=== PATIENT | female | born 1985 | race Caucasian/White ===

== ENCOUNTER → 2020-08-19 11:27 | Outpatient (BNVA) | payer MEDICAID, SELFPAY | PROVIDERS: PCP Pediatrics; Referring Provider Pediatrics; Visit Provider Internal Medicine | DX: Z76.89 Persons encountering health services in other specified circumstances (principal) ==

== ENCOUNTER → 2020-10-26 11:30 | Outpatient (BNVA) | payer MEDICAID, SELFPAY | PROVIDERS: PCP Pediatrics; Referring Provider Pediatrics; Visit Provider Internal Medicine ==

== ENCOUNTER 2020-12-15 08:57 | Outpatient (REF) | payer MEDICAID, SELFPAY ==
[2020-12-15 10:55] LABS: Free T4 (Free Thyroxine) 0.94 ng/dL (0.71-1.85); Thyroid Stimulating Hormone 2.14 uIU/mL (0.32-4.0)
== END 2020-12-15 08:58 | disposition home or self-care (01) ==
LOC: HO.LAB 08:57
PROVIDERS: PCP Nurse Practitioner; Visit Provider Internal Medicine
DX: E03.9 Hypothyroidism, unspecified (principal); E55.9 Vitamin D deficiency, unspecified
CPT/HCPCS: 36415; 82306; 84439; 84443

== ENCOUNTER → 2020-12-30 11:44 | Outpatient (BNVA) | payer MEDICAID, SELFPAY | PROVIDERS: PCP Pediatrics; Visit Provider Internal Medicine ==

== ENCOUNTER 2021-01-25 15:05 | Outpatient (REF) | payer MEDICAID, SELFPAY | END 2021-01-25 15:06 | disposition home or self-care (01) | LOC: HO.LAB 15:05 | PROVIDERS: Visit Provider Internal Medicine | DX: Z20.822 Contact with and (suspected) exposure to COVID-19 (principal) | CPT/HCPCS: C9803; U0003; U0005 ==

== ENCOUNTER 2021-02-23 08:35 | Outpatient (REF) | payer MEDICAID, SELFPAY ==
[2021-02-23 09:41] LABS: Free T4 (Free Thyroxine) 1.04 ng/dL (0.71-1.85); Thyroid Stimulating Hormone 3.04 uIU/mL (0.32-4.0); Vitamin D 25-OH Total 43.9 ng/mL (>30)
== END 2021-02-23 08:36 | disposition home or self-care (01) ==
LOC: HO.LAB 08:35
PROVIDERS: PCP Pediatrics; Visit Provider Internal Medicine
DX: E03.9 Hypothyroidism, unspecified (principal); E55.9 Vitamin D deficiency, unspecified
CPT/HCPCS: 36415; 82306; 84439; 84443

== ENCOUNTER → 2021-03-01 09:48 | Outpatient (BNVA) | payer MEDICAID, SELFPAY | PROVIDERS: PCP Pediatrics; Visit Provider Internal Medicine ==

== ENCOUNTER 2021-06-23 08:24 | Outpatient (REF) | payer MEDICAID, SELFPAY ==
[2021-06-23 09:42] LABS: Free T4 (Free Thyroxine) 0.98 ng/dL (0.71-1.85); Thyroid Stimulating Hormone 2.83 uIU/mL (0.32-4.0); Vitamin D 25-OH Total 30.4 ng/mL (>30)
== END 2021-06-23 08:25 | disposition home or self-care (01) ==
LOC: HO.LAB 08:24
PROVIDERS: PCP Pediatrics; Visit Provider Internal Medicine
DX: E03.9 Hypothyroidism, unspecified (principal); E55.9 Vitamin D deficiency, unspecified
CPT/HCPCS: 36415; 82306; 84439; 84443

== ENCOUNTER → 2021-06-30 11:59 | Outpatient (BNVA) | payer MEDICAID, SELFPAY | PROVIDERS: PCP Pediatrics; Visit Provider Internal Medicine ==

== ENCOUNTER 2021-10-12 10:00 | Outpatient (REF) | payer MEDICAID, SELFPAY ==
[2021-10-12 10:57] LABS: COVID-19 Test Negative (Negative)
== END 2021-10-12 10:01 | disposition home or self-care (01) ==
LOC: HO.LAB 10:00
PROVIDERS: Visit Provider Internal Medicine
DX: Z20.822 Contact with and (suspected) exposure to COVID-19 (principal)
CPT/HCPCS: 87635; C9803

== ENCOUNTER 2021-10-14 14:26 | Outpatient (REF) | payer MEDICAID, SELFPAY ==
[2021-10-14 15:01] LABS: COVID-19 Test Negative (Negative)
== END 2021-10-14 14:27 | disposition home or self-care (01) ==
LOC: HO.LAB 14:26
PROVIDERS: Visit Provider Internal Medicine
DX: Z20.822 Contact with and (suspected) exposure to COVID-19 (principal)
CPT/HCPCS: 87635; C9803

== ENCOUNTER 2022-01-19 14:15 | Outpatient (REF) | payer MEDICAID, SELFPAY | END 2022-01-19 14:16 | disposition home or self-care (01) | LOC: HO.MAMMO 14:15 | PROVIDERS: PCP Pediatrics; Visit Provider Pediatrics | DX: Z13.89 Encounter for screening for other disorder (principal) ==

== ENCOUNTER 2022-01-23 19:45 | Emergency (ER) | payer MEDICAID, SELFPAY ==
--- NOTE | ~2022-01-23 | XR_ITS ---
EXAMINATION: XR CHEST CLINICAL INFORMATION: Chest pain COMPARISON: None TECHNIQUE: Frontal view of the chest was obtained. FINDINGS: Lungs are well expanded and clear. No consolidation, pleural effusion or pneumothorax. Cardiomediastinal silhouette has normal size and contour. The pulmonary vascular pattern is normal. The visualized bones and upper abdomen are unremarkable. XR/XR chest 1V IMPRESSION: No acute pulmonary disease.
--- NOTE | 2022-01-23 19:48 | ECG_ITS ---
Test Reason : chest pain Blood Pressure : / mmHG Vent. Rate : 111 BPM Atrial Rate : 111 BPM P-R Int : 160 ms QRS Dur : 076 ms QT Int : 340 ms P-R-T Axes : 052 -10 -07 degrees QTc Int : 462 ms Sinus tachycardia Minimal voltage criteria for LVH, may be normal variant ( R in aVL ) Nonspecific ST changes Abnormal ECG No previous ECGs available Referred By: Generic ED Physician Electronically Signed By:Ruben Jenkins
[2022-01-23 19:54] VITALS: BP 105/78; PULSE 117; RESP 18; TEMP 37.3; O2SAT 98; BMI 28.5
[2022-01-23 20:05] LABS: MANUAL DIFF FLAG NO
[2022-01-23 20:18] LABS: Basophils Absolute Auto 0.1 X10*3/uL (0.0-0.2); Basophils Percent Auto 0.5 % (0-2); Eosinophils Absolute Auto 0.1 X10*3/uL (0.0-0.4); Eosinophils Percent Auto 0.5 % (0-4); Hematocrit 40.5 % (37.0-47.0); Hemoglobin 13.4 g/dl (12.0-16.0); Imm Gran Abs Auto 0.04 X10*3/uL (0.00-0.03); Imm Gran Pct Auto 0.3 % (0.0-0.4); Lymphocytes Absolute Auto 0.8 X10*3/uL (1.2-4.9); Lymphocytes Percent Auto 6.6 % (20-40); Mean Corpuscular HGB Conc 33.1 g/dl (31.0-35.0); Mean Corpuscular Hemoglobin 30.7 pg (27.0-33.0); Mean Corpuscular Volume 92.9 fL (80.0-98.0); Mean Platelet Volume 9.4 fL (9.4-12.3); Monocytes Absolute Auto 0.4 X10*3/uL (0.1-1.2); Monocytes Percent Auto 3.5 % (2-11); Neutrophils Absolute Auto 11.2 x10*3/uL (2.0-8.3); Neutrophils Percent Auto 88.6 % (45-73); Platelet Count 330 X10*3/uL (160-400); Red Blood Count 4.36 X10*6/uL (4.20-5.50); Red Cell Distribution Width 12.4 % (11.0-16.0); White Blood Count 12.6 X10*3/uL (4.8-10.8)
[2022-01-23 20:20] LABS: Anion Gap 13 (12-20); Blood Urea Nitrogen 12 mg/dL (9-16); Calcium 8.7 mg/dL (8.4-10.2); Carbon Dioxide 24 mmol/L (22-29); Chloride 107 mmol/L (96-108); Estimated Glomerular Filt Rate > 60; Glucose Random 95 mg/dL (60-115); Potassium 3.7 mmol/L (3.3-5.1); Sodium 140 mmol/L (135-145)
[2022-01-23 20:26] LABS: Troponin-I High Sensitivity < 3.5 ng/L (<3.5-17.0)
[2022-01-23 20:34] LABS: COVID-19 Test Negative (Negative); IDNOW Serial# 16C4AD1C; Influenza A Positive (Negative); Influenza B2 Negative (Negative)
[2022-01-23] MEDS: Acetaminophen 325 MG TABLET 975 MG PO (21:40)
[2022-01-23] MEDS: Ibuprofen 400 MG TABLET PO (21:40)
--- NOTE | 2022-01-23 21:40 | ED.GENADULT ---
HPI - General Adult General Chief complaint: Upper Respiratory Symptoms Stated complaint: Chest pain/Sob/Bodyaches/Headache Time Seen by Provider: 01/23/22 21:10 Source: patient Mode of arrival: ambulatory History of Present Illness HPI narrative: 36-year-old female with history of thyroid dysfunction presents with body aches, cough, subjective fevers and chills with headache since noon today. She does report a sick contact with flu. Related Data Home Medications Medication Instructions Recorded Confirmed cholecalciferol (vitamin D3) 50 50 mcg PO DAILY 08/19/20 06/30/21 mcg (2,000 unit) capsule Previous Rx's Medication Instructions Recorded levothyroxine 112 mcg tablet 112 mcg PO DAILY #30 tab 06/30/21 (Synthroid) oseltamivir 75 mg capsule (Tamiflu) 75 mg PO Q12H 5 Days #10 cap 01/23/22 Allergies Allergy/AdvReac Type Severity Reaction Status Date / Time erythromycin base Allergy Unknown UNKNOWN Verified 06/30/21 13:57 [ERYTHROMYCIN BASE] Penicillins [PCN] Allergy Unknown UNKNOWN Verified 06/30/21 13:57 Azithromycin Allergy Unknown shortness Uncoded 06/30/21 13:57 of breath penicillin Allergy Unknown shortness Uncoded 06/30/21 13:57 of breath Review of Systems Review of Systems: Pertinent positives and negatives as stated in HPI 10 point review of systems otherwise negative. PMFSH Past Medical History Source: nursing notes reviewed Medical History Hypothyroidism Vitamin D deficiency Surgical History Hx of bariatric surgery Hx of cholecystectomy Hx of tubal ligation Family History Family History Father Diabetes Hypothyroidism Hypertension Mother Hypertension Social History Social History Alcohol intake: never Patient Tobacco Use Status: Never used Tobacco Advance Directives: No Patient : No Physical Exam ED Vital Signs: Vital Signs - 24 hr 01/23/22 19:54 Temperature 99.2 F Pulse Rate 117 H Respiratory Rate 18 Blood Pressure 105/78 Pulse Oximetry 98 BMI result Body Mass Index 28.5 VITAL SIGNS: Reviewed. GENERAL: Well developed, well nourished, in no acute distress. HEAD: Normocephalic/atraumatic EYES: PERRLA, EOMI still EARS: Ext canals without abnormality, TMs non-bulging and non-erythematous NOSE: Nares patent bilateral OROPHARYNX: no oral lesions noted, posterior pharynx clear and non-erythematous without noted tonsillar enlargement/erythema/exudates NECK: Supple, no adenopathy LUNGS: Normal breath sounds. No adventitious sounds or accessory muscle use. SpO2<98> CARDIOVASCULAR: Regular rate and rhythm without noted murmurs ABDOMEN: Soft, non-tender, non-distended with bowel sounds. SKIN: Inspection of the skin reveals no rashes NEUROLOGIC: Alert and oriented x 4. Strength and sensation to light touch were grossly intact x 4. Course Course Course Narrative: 36-year-old female with history and clinical presentation consistent with viral syndrome and on review of all investigations there are no acute findings other than influenza a positivity and the leukocytosis that is noted is felt to be reactive in nature. Patient received combination analgesics as well as an initial Tamiflu dose. She is otherwise discharged home in stable condition. Medical Decision Making Lab Data Result diagrams: 01/23/22 20:01 01/23/22 20:01 Labs: Lab Results 01/23/22 01/23/22 01/23/22 Range/Units 20:01 20:01 20:01 WBC 12.6 H (4.8-10.8) X10*3/uL RBC 4.36 (4.20-5.50) X10*6/uL Hgb 13.4 (12.0-16.0) g/dl Hct 40.5 (37.0-47.0) % MCV 92.9 (80.0-98.0) fL MCH 30.7 (27.0-33.0) pg MCHC 33.1 (31.0-35.0) g/dl RDW 12.4 (11.0-16.0) % Plt Count 330 (160-400) X10*3/uL MPV 9.4 (9.4-12.3) fL Immature Gran % (Auto) 0.3 (0.0-0.4) % Neut % (Auto) 88.6 H (45-73) % Lymph % (Auto) 6.6 L (20-40) % [place] % (Auto) 3.5 (2-11) % Eos % (Auto) 0.5 (0-4) % Baso % (Auto) 0.5 (0-2) % Lymph # (Auto) 0.8 L (1.2-4.9) X10*3/uL [place] # (Auto) 0.4 (0.1-1.2) X10*3/uL Eos # (Auto) 0.1 (0.0-0.4) X10*3/uL Baso # (Auto) 0.1 (0.0-0.2) X10*3/uL Abs Immat Gran (auto) 0.04 H (0.00-0.03) X10*3/uL Absolute Neuts (auto) 11.2 H (2.0-8.3) x10*3/uL Absolute Nucleated RBC 0.000 (0.0-0.012) X10*3/uL Nucleated RBC % (auto) 0.0 (0.0-0.2) /100WBC Sodium 140 (135-145) mmol/L Potassium 3.7 (3.3-5.1) mmol/L Chloride 107 (96-108) mmol/L Carbon Dioxide 24 (22-29) mmol/L Anion Gap 13 (12-20) BUN 12 (9-16) mg/dL Creatinine 0.69 (0.5-1.4) mg/dL Estim Creat Clear Calc 110.0 Estimated GFR > 60 Random Glucose 95 (60-115) mg/dL Calcium 8.7 (8.4-10.2) mg/dL Troponin I High Sens < 3.5 (<3.5-17.0) ng/L COVID-19 (YAEL) (Negative) COVID-19 Clin Com Influenza Type A (MATT) (Negative) Influenza Type B (MATT) (Negative) Influenza A & B Note 01/23/22 01/23/22 Range/Units 20:08 20:08 WBC (4.8-10.8) X10*3/uL RBC (4.20-5.50) X10*6/uL Hgb (12.0-16.0) g/dl Hct (37.0-47.0) % MCV (80.0-98.0) fL MCH (27.0-33.0) pg MCHC (31.0-35.0) g/dl RDW (11.0-16.0) % Plt Count (160-400) X10*3/uL MPV (9.4-12.3) fL Immature Gran % (Auto) (0.0-0.4) % Neut % (Auto) (45-73) % Lymph % (Auto) (20-40) % [place] % (Auto) (2-11) % Eos % (Auto) (0-4) % Baso % (Auto) (0-2) % Lymph # (Auto) (1.2-4.9) X10*3/uL [place] # (Auto) (0.1-1.2) X10*3/uL Eos # (Auto) (0.0-0.4) X10*3/uL Baso # (Auto) (0.0-0.2) X10*3/uL Abs Immat Gran (auto) (0.00-0.03) X10*3/uL Absolute Neuts (auto) (2.0-8.3) x10*3/uL Absolute Nucleated RBC (0.0-0.012) X10*3/uL Nucleated RBC % (auto) (0.0-0.2) /100WBC Sodium (135-145) mmol/L Potassium (3.3-5.1) mmol/L Chloride (96-108) mmol/L Carbon Dioxide (22-29) mmol/L Anion Gap (12-20) BUN (9-16) mg/dL Creatinine (0.5-1.4) mg/dL Estim Creat Clear Calc Estimated GFR Random Glucose (60-115) mg/dL Calcium (8.4-10.2) mg/dL Troponin I High Sens (<3.5-17.0) ng/L COVID-19 (YAEL) Negative (Negative) COVID-19 Clin Com See Note Influenza Type A (MATT) Positive A (Negative) Influenza Type B (MATT) Negative (Negative) Influenza A & B Note See Note Discharge Plan Discharge Clinical Impression: Viral infection, Influenza A Patient Disposition: Home, Self-Care Instructions: Oseltamivir (By mouth), Influenza (ED), Viral Syndrome (ED) Additional Instructions: 1. Recomendar supresores de la tos de venta huong, as? shonda Tylenol y/o ibuprofeno seg?n sea necesario para nora corporales, temperaturas superiores a 100.4. 2. Complete todo el curso de Tamiflu a menos que desarrolle n?useas y v?mitos y entonces la recomendaci?n es que deje de oumou jim medicamento. 3. Debe usar ellis m?scara cuando est? cerca de otras personas hasta que haya completado el tratamiento con Tamiflu. Regrese a la will de emergencias si los s?ntomas empeoran. Prescriptions: New oseltamivir [Tamiflu] 75 mg capsule 75 mg PO Q12H 5 Days Qty: 10 0RF No Action levothyroxine [Synthroid] 112 mcg tablet 112 mcg PO DAILY Qty: 30 11RF cholecalciferol (vitamin D3) 50 mcg (2,000 unit) capsule 50 mcg PO DAILY 0RF Referrals: Rachele Bailey MD [Primary Care Provider] - Print Language: Azeri
[2022-01-23] MEDS: Oseltamivir Phosphate 75 MG CAPSULE PO (21:53)
== END 2022-01-23 21:58 | disposition home or self-care (01) ==
PROVIDERS: Emergency Provider Student in an Organized Health Care Education/Training Program; PCP Pediatrics
DX: J10.1 Influenza due to other identified influenza virus with other respiratory manifestations (principal); B34.9 Viral infection, unspecified; Z20.822 Contact with and (suspected) exposure to COVID-19
CPT/HCPCS: 36415; 71045; 80048; 84484; 85025; 87502; 87635; 93005; 99284

== ENCOUNTER 2022-01-31 09:48 | Emergency (ER) | payer MEDICAID, SELFPAY ==
--- NOTE | ~2022-01-31 | XR_ITS ---
EXAMINATION: XR CHEST CLINICAL INFORMATION: Chest congestion. Fever. COMPARISON: Chest done on 01/23/2022. TECHNIQUE: 2 views of the chest were obtained. FINDINGS: No significant abnormality is noted involving the heart, lungs, mediastinum, bony thorax or soft tissues. XR/XR chest 2V IMPRESSION: Unremarkable examination.
[2022-01-31 09:51] VITALS: BP 113/87; PULSE 120; RESP 20; TEMP 38.3; O2SAT 99; BMI 28.3
[2022-01-31] MEDS: Ibuprofen 800 MG TABLET PO (10:35)
[2022-01-31 10:49] LABS: COVID-19 Test Negative (Negative); IDNOW Serial# 16C4AD1C
[2022-01-31 11:30] VITALS: RESP 18
--- NOTE | 2022-01-31 11:52 | ED_ITS ---
HPI - URI/Sore Throat General Chief Complaint: Upper Respiratory Symptoms Stated Complaint: Chills/Headache/Body aches Time Seen by Provider: 01/31/22 10:20 Source: patient Mode of arrival: ambulatory Limitations: no limitations History of Present Illness HPI Narrative: 36-year-old female with a past medical history of hypothyroidism and vitamin-D deficiency who was recently seen here on 01/23/2022 and diagnosed with influenza a presenting to the ED with complaints of subjective fevers, chills, fatigue, malaise, body aches and cough with chest congestion and sputum production for the past 2 days worse today. Reports that her symptoms complete really resolved on Monday or Monday from her influenza a and she was not having any symptoms and her symptoms started 2 days ago again. She reports her daughter as well has influenza a. She denies any other sick contacts. She denies any dizziness, neck pain/stiffness, trouble swallowing or breathing, chest pain or shortness of breath, dyspnea on exertion, orthopnea, palpitations, nausea/vomiting/diarrhea constipation, abdominal pain, back pain, dysuria, hematuria, abnormal vaginal discharge, rashes, recent travel or any other symptoms complaints or concerns at this time. MD elicited complaint: fever and cough Onset (ago): day(s) (2) Consistency: constant and progressively worsening Severity: mild Description of mucous: clear, watery and yellow Able to tolerate fluids by mouth: Yes Exacerbating factors: nothing Relieving factors: other (Motrin/Tylenol) Associated symptoms: fever, chills, myalgias, headache and cough Treatments prior to arrival: none Related Data Home Medications Medication Instructions Recorded Confirmed cholecalciferol (vitamin D3) 50 50 mcg PO DAILY 08/19/20 06/30/21 mcg (2,000 unit) capsule Previous Rx's Medication Instructions Recorded levothyroxine 112 mcg tablet 112 mcg PO DAILY #30 tab 06/30/21 (Synthroid) oseltamivir 75 mg capsule (Tamiflu) 75 mg PO Q12H 5 Days #10 cap 01/23/22 acetaminophen 500 mg tablet 1,000 mg PO QID PRN #14 tab 01/31/22 (Tylenol Extra Strength) codeine 10 mg-guaifenesin 100 mg/5 5 ml PO Q6H PRN #120 ml 01/31/22 mL oral liquid (Guaifenesin AC) doxycycline monohydrate 100 mg 100 mg PO BID 10 Days #20 cap 01/31/22 capsule ibuprofen 800 mg tablet 800 mg PO Q8H PRN #14 tab 01/31/22 Allergies Allergy/AdvReac Type Severity Reaction Status Date / Time erythromycin base Allergy Unknown UNKNOWN Verified 06/30/21 13:57 [ERYTHROMYCIN BASE] Penicillins [PCN] Allergy Unknown UNKNOWN Verified 06/30/21 13:57 Azithromycin Allergy Unknown shortness Uncoded 06/30/21 13:57 of breath penicillin Allergy Unknown shortness Uncoded 06/30/21 13:57 of breath Review of Systems Review of Systems: Constitutional :+ subjective fevers/chills/fatigue/malaise, No Weight loss, No Night Sweats ENT/Mouth : No Hearing loss, No Ear Pain, No Nasal Congestion, No Sinus Pain, No Hoarseness, No sore throat, No Rhinorrhea, No Swallowing Difficulty Eyes: No Eye Pain, No Swelling, No Redness, No Foreign Body, No Discharge, No Vision Changes Cardiovascular : No Chest Pain, No SOB, No Dyspnea on Exertion, No Orthopnea, No Edema, No Palpitations Respiratory : + cough/sputum production, No Wheezing, No Smoke Exposure, No Dyspnea Gastrointestinal : No Nausea, No Vomiting, No Diarrhea, No Constipation, No abdominal Pain, No Hematochezia, No Melena Genitourinary : no irregular bleeding, No Dysuria, No Urinary Frequency, No Hematuria, No Urinary Incontinence, No Urgency, No Flank Pain, No Urinary Flow C hanges, No Hesitancy Musculoskeletal : + myalgias, No joint pain, No Joint Swelling Skin : No Skin Lesions, No rash Neuro : No Weakness, No Numbness, No Paresthesias, No Loss of Consciousness, No Dizziness, No Headache Psych : No Anxiety/Panic, No Depression, No SI/HI/AH/VH, No Social Issues, Heme/Lymph: No Bruising, No Bleeding,No Lymphadenopathy Endocrine : No Polyuria, No Polydipsia, No Temperature Intolerance Yes all other systems are reviewed and are negative [facility] Past Medical History Attestation statement: The following information was validated with the patient. Medical History Hypothyroidism Vitamin D deficiency Surgical History Hx of bariatric surgery Hx of cholecystectomy Hx of tubal ligation Family History Family History Father Diabetes Hypothyroidism Hypertension Mother Hypertension Social History Social History Alcohol intake: never Patient Tobacco Use Status: Never used Tobacco Advance Directives: No Advance Directives Information Provided: Yes Patient : No Physical Exam Vital Signs: Vital Signs: Last Vital Signs Temp 100.9 F H 01/31/22 09:51 Pulse 120 H 01/31/22 09:51 Resp 20 01/31/22 09:51 BP 113/87 01/31/22 09:51 Pulse Ox 99 01/31/22 09:51 BMI result Body Mass Index 28.3 vital signs have been reviewed as normal and appeared to be correct. Blood pressure normal. Heart rate 120. Respiration rate normal. Temperature 100.9. Oxygen saturation normal. Appearance: Alert. Oriented X3. No acute distress. Head: Normal external exam. Normocephalic. Atraumatic. Eyes: PERRLA. EOMI. Conjunctiva and sclera normal. Eyelids normal. ENT: EAC normal. TM's Normal. Pharynx normal. Uvula midline. Moist mucous membranes. No lesions/ulcerations or masses noted on the tongue. Normal voice. No trismus noted. No drooling noted. No muffled voice noted. Neck: Normal inspection. Neck supple. FROM. No adenopathy. Thyroid Normal. No meningeal signs. No neck mass noted. CVS: Normal heart rate and rhythm. Heart sound normal. Pulses normal throughout. No murmurs/rales/gallops. Respiratory: No respiratory distress. Painless inspiration. Breath sounds normal. No wheezes/rales/rhonchi noted. Chest nontender. No accessory muscle usage noted or decreased air movement noted. Abdomen: Soft and nontender. Bowel sounds normal in all 4 quadrants. No distention noted. No organomegaly noted. No visible injury noted. Back: No CVA tenderness. Full range of motion noted. Nontender. No signs of trauma. Patient neuro intact bilaterally and distally on all 4 extremities. Patient's reflexes intact bilaterally and distally on all 4 extremities. No rashes/lesion/induration/fluctuance or signs of infection noted. Skin: Skin warm and dry. Normal skin color. Normal skin turgor. No rashes/lesions/lacerations noted. Extremities: No lower extremity edema. No calf tenderness is noted. Extremities exhibit normal range of motion and nontender. Neuro: Oriented X 3. No motor deficit. No sensory deficit. Reflexes normal. Normal steady gait. No focal neuro deficits noted. CN's II-XII intact bilaterally? Vascular: + radial pulses/+ 2 distal pedal pulses/+2 dorsalis pedis b/l. Normal cap refill. No cyanosis noted to upper extremity nails and lower extremity toes nails. Course Course Course Narrative: 10:25am - 36-year-old female with a past medical history of hypothyroidism and vitamin-D deficiency who was recently seen here on 01/23/2022 and diagnosed with influenza a presenting to the ED with complaints of subjective fevers, chills, fatigue, malaise, body aches and cough with chest congestion and sputum production for the past 2 days worse today. Reports that her symptoms complete really resolved on Monday or Monday from her influenza a and she was not having any symptoms and her symptoms started 2 days ago again. She reports her daughter as well has influenza a. Plan: Will provide 100 mg of Tylenol for the patient's fever, obtain a chest x- ray and swab for COVID and re-evaluate. Reevaluation(s) Reevaluation #1: - patient negative for COVID. Patient negative for pneumonia or any other acute processes chest x-ray was within normal limits. Therefore patient most likely prolonged symptoms from the flu versus a bronchitis. Will DC home with symptomatic treatment instructions return if any new or worsening symptoms to follow up with primary care provider. Patient understands agrees with this plan. Time: 12:49 [facility] - URI/Sore Throat Medical Records Attestation: I reviewed the patient's medical records. Lab Data Attestation: I reviewed the patient's lab results. Labs: Lab Results 01/31/22 Range/Units 10:30 COVID-19 (YAEL) Negative (Negative) COVID-19 Clin Com See Note Imaging Data Chest x-ray: Attestation: I personally reviewed and interpreted this imaging study as follows: Radiologist's impression: FINDINGS: No significant abnormality is noted involving the heart, lungs, mediastinum, bony thorax or soft tissues. XR/XR chest 2V IMPRESSION: Unremarkable examination. Discharge Plan Discharge Clinical Impression: Influenza, Bronchitis with influenza, Fever Patient Disposition: Home, Self-Care Instructions: Acute Bronchitis (ED) Prescriptions: New ibuprofen 800 mg tablet 800 mg PO Q8H PRN (Reason: pain) Qty: 14 0RF acetaminophen [Tylenol Extra Strength] 500 mg tablet 1,000 mg PO QID PRN (Reason: fever or pain) Qty: 14 0RF codeine-guaifenesin [Guaifenesin AC] 10-100 mg/5 mL liquid 5 ml PO Q6H PRN (Reason: cold symptoms) Qty: 120 0RF doxycycline monohydrate 100 mg capsule 100 mg PO BID 10 Days Qty: 20 0RF No Action levothyroxine [Synthroid] 112 mcg tablet 112 mcg PO DAILY Qty: 30 11RF oseltamivir [Tamiflu] 75 mg capsule 75 mg PO Q12H 5 Days Qty: 10 0RF cholecalciferol (vitamin D3) 50 mcg (2,000 unit) capsule 50 mcg PO DAILY 0RF Referrals: Rachele Bailey MD [Primary Care Provider] - 2 days Stand Alone Forms: Work/School Release Print Language: Swedish
== END 2022-01-31 13:01 | disposition home or self-care (01) ==
PROVIDERS: Physician Assistant Medical; Emergency Provider Emergency Medicine; PCP Pediatrics
DX: J10.1 Influenza due to other identified influenza virus with other respiratory manifestations (principal); Z20.822 Contact with and (suspected) exposure to COVID-19
CPT/HCPCS: 71046; 87635; 99283; 99284

== ENCOUNTER 2022-10-31 15:05 | Observation (INO) | payer MEDICAID, SELFPAY ==
--- NOTE | ~2022-10-31 | CT_ITS ---
EXAMINATION: CT ABDOMEN AND PELVIS WITH CONTRAST CLINICAL INFORMATION: Epigastric and right lower quadrant pain COMPARISON: None TECHNIQUE: Multidetector volumetric images were obtained from the superior aspect of the liver through the pubic symphysis following administration 85 mL of Omnipaque 350 intravenous contrast. Sagittal and coronal reformatted images were obtained on the technologist's workstation. Oral contrast: No This CT examination was performed using dose optimization techniques as appropriate, variously including the following: *Automated exposure control *Adjustment of mA and/or kV according to patient size (this includes techniques or standardized protocols for targeted exams where dose is matched to indication/reason for exam; i.e. extremities or head) *Use of iterative reconstruction technique DLP: 533r mGy-cm FINDINGS: LUNG BASES: The visualized lung bases are unremarkable. LIVER, GALLBLADDER, AND BILIARY TREE: The liver is normal in size, shape, and attenuation. No focal hepatic lesion or biliary ductal dilatation is present. Status post cholecystectomy PANCREAS: Unremarkable. SPLEEN: Unremarkable. A small splenic cyst is present. ADRENAL GLANDS: Unremarkable. KIDNEYS AND URETERS: The kidneys are normal in size, shape, and attenuation. There is a benign 8 mm Bosniak class I right renal cyst present. No additional imaging or follow-up is needed. No solid renal masses. No hydronephrosis, hydroureter, or calculi seen. No perinephric stranding. BLADDER: Unremarkable. GASTROINTESTINAL TRACT: The small and large bowel are unremarkable. The appendix is mildly dilated at 11 mm. No air is present in the appendix. No appendicolith is seen. There are no inflammatory changes seen in the periappendiceal fat.. ABDOMINAL WALL: No significant hernia is appreciated. LYMPH NODES: No retroperitoneal lymphadenopathy. VASCULAR: Unremarkable. PELVIC VISCERA: The uterus and adnexa are unremarkable. OSSEOUS STRUCTURES: Mild degenerative changes are seen in the spine. Mild anterior wedging of T12. CT/CT abdomen pelvis w IV con IMPRESSION: 1. The appendix is mildly dilated at 11 mm. No air is present in the appendix. No inflammatory changes are seen in the periappendiceal fat. Early appendicitis cannot be entirely excluded. 2. Other incidental findings as described above. Fleischner guidelines were followed.
[2022-10-31 16:32] VITALS: BP 108/68; PULSE 76; RESP 18; TEMP 36.7; O2SAT 97; BMI 25.0
--- NOTE | 2022-10-31 16:34 | ED_ITS ---
HPI - General Adult General Chief complaint: Abdominal Pain <VAIBHAV Wellington Last Filed: 11/05/22 16:11> Stated complaint: vomiting/ abd pain <VAIBHAV Wellington Last Filed: 11/05/22 16:11> Time Seen by Provider: 10/31/22 20:34 <VAIBHAV Wellington Last Filed: 11/05/22 16:11> Source: patient <VAIBHAV Levine Last Filed: 10/31/22 23:50> Mode of arrival: ambulatory <VAIBHAV Levine Last Filed: 10/31/22 23:50> Limitations: no limitations <VAIBHAV Levine Last Filed: 10/31/22 23:50> History of Present Illness HPI narrative: This is a 37-year-old female past medical history significant for hypothyroidism and vitamin-D deficiency presenting to the emergency department with complaints of abdominal pain particularly in the epigastric and lower abdomen as well as nausea and vomiting since this morning sudden in onset. Patient tells me she has not been able to keep anything down, she tells me nothing like this has ever happened to her before. She reports that her daughter at home is sick with similar symptoms. She reports she is vomiting bile, reports last night she was feeling fine and was able to eat however this morning everything changed. Denies chest pain, shortness of breath, fevers, chills hematemesis, flank pain, changes in bowel habits or urination, headache, vision changes or dizziness. <VAIBHAV Levine Last Filed: 10/31/22 23:50> Related Data Home medications: Home Medications Medication Instructions Recorded Confirmed levothyroxine 112 mcg tablet 1 tab PO DAILY 11/01/22 11/01/22 Previous Rx's Medication Instructions Recorded docusate sodium 100 mg capsule 100 mg PO BID PRN constipation #30 11/02/22 (Colace) caps oxycodone 5 mg tablet 5 mg PO Q4H PRN pain (scale score 11/02/22 7-10) #20 tabs <VAIBHAV Wellington Last Filed: 11/05/22 16:11> Allergies/adverse reactions: Allergies Allergy/AdvReac Type Severity Reaction Status Date / Time erythromycin base Allergy Unknown UNKNOWN Verified 06/30/21 13:57 [ERYTHROMYCIN BASE] Penicillins [PCN] Allergy Unknown UNKNOWN Verified 06/30/21 13:57 Azithromycin Allergy Unknown shortness Uncoded 06/30/21 13:57 of breath penicillin Allergy Unknown shortness Uncoded 06/30/21 13:57 of breath <VAIBHAV Wellington - Last Filed: 11/05/22 16:11> Review of Systems Review of Systems: Constitutional : No Weight loss, No Fever, No Chills, No Fatigue, No Malaise ENT/Mouth : No sore throat, No Rhinorrhea Eyes: No Eye Pain, No Swelling, No Redness Cardiovascular : No Chest Pain, No SOB, No Dyspnea on Exertion, No Orthopnea, No Edema, No Palpitations Respiratory : No Cough, No Sputum, No Wheezing Gastrointestinal : + Nausea, + Vomiting, No Diarrhea, No Constipation, + abdominal Pain, No Hematochezia, No Melena Genitourinary : No Dysuria, No Urinary Frequency, No Hematuria, Musculoskeletal : No joint pain, No Myalgias, No Joint Swelling Skin : No Skin Lesions, No rash Neuro : No Weakness, No Numbness, No Dizziness, No Headache Psych : No Anxiety/Panic, No Depression All other systems reviewed and are negative <VAIBHAV Levine - Last Filed: 10/31/22 23:50> Yes all other systems are reviewed and are negative <VAIBHAV Levine - Last Filed: 10/31/22 23:50> PMFSH Past Medical History Attestation statement: The following information was validated with the patient. <VAIBHAV Levine - Last Filed: 10/31/22 23:50> Source: old records reviewed and nursing notes reviewed <VAIBHAV Levine - Last Filed: 10/31/22 23:50> Medical History: Medical History Hypothyroidism Vitamin D deficiency <VAIBHAV Wellington Last Filed: 11/05/22 16:11> Surgical History: Surgical History Hx of bariatric surgery Hx of cholecystectomy Hx of tubal ligation <VAIBHAV Wellington - Last Filed: 11/05/22 16:11> Family History Family History: Family History Father Diabetes Hypothyroidism Hypertension Mother Hypertension <VAIBHAV Wellington - Last Filed: 11/05/22 16:11> Social History Social History: Social History Household Members: Spouse Housing: Apartment Do you presently have visiting nurse or other home services: No Alcohol intake: never Patient Tobacco Use Status: Never used Tobacco service: No Current occupational status: employed <VAIBHAV Wellington - Last Filed: 11/05/22 16:11> Physical Exam ED Vital Signs: Vital Signs - 24 hr 10/31/22 16:32 10/31/22 22:57 Temperature 98.1 F 98.3 F Pulse Rate 76 67 Respiratory Rate 18 13 Blood Pressure 108/68 104/57 L Pulse Oximetry 97 99 Oxygen Delivery Method Room Air Room Air BMI result Body Mass Index 25.0 <VAIBHAV Wellington - Last Filed: 11/05/22 16:11> Vital Signs - 24 hr 10/31/22 16:32 10/31/22 22:57 Temperature 98.1 F 98.3 F Pulse Rate 76 67 Respiratory Rate 18 13 Blood Pressure 108/68 104/57 L Pulse Oximetry 97 99 Oxygen Delivery Method Room Air Room Air BMI result Body Mass Index 25.0 vss <VAIBHAV Levine - Last Filed: 10/31/22 23:50> Vital Signs - 24 hr 10/31/22 16:32 10/31/22 22:57 Temperature 98.1 F 98.3 F Pulse Rate 76 67 Respiratory Rate 18 13 Blood Pressure 108/68 104/57 L Pulse Oximetry 97 99 Oxygen Delivery Method Room Air Room Air BMI result Body Mass Index 25.0 <Elfego Hurt MD - Last Filed: 10/31/22 23:51> Appearance: Alert.? Oriented X3.? No acute distress.? Head: Normocephalic, atraumatic, no step-offs or deformities Eyes: Pupils equal, round and reactive to light.? ENT: Pharynx normal.? Neck: Normal inspection.? Neck supple.? CVS: Normal heart rate and rhythm.? Pulses normal.? Respiratory: No respiratory distress.? Breath sounds normal.? Abdomen: Soft and + tenderness to epigastric region, and right lower abdomen.? Skin: Skin warm and dry.? Normal skin color.? Normal skin turgor.? Extremities: No lower extremity edema.? No calf ttp. 5/5 strength to bilateral upper and lower extremities Neuro: Oriented X 3.? No motor deficit.? No sensory deficit. CN 2-12 intact <VAIBHAV Levine - Last Filed: 10/31/22 23:50> Course Course Course Narrative: RME: 37 yold female presents to the ED for abdominal pain, nuase, and vomitting. she states duaghter has similiar symptoms. no guarding on abdominal exam. mild tenderness. labs ordered <VAIBHAV Wellington - Last Filed: 11/05/22 16:11> Reevaluation(s) Reevaluation #1: White blood cell count of 14.9 likely secondary to nausea or vomiting. Will wait to initiate antibiotics until imaging is back. Chemistry with no acute electrolyte abnormalities requiring intervention. Influenza and COVID negative. Imaging pending at this time. <VAIBHAV Levine - Last Filed: 10/31/22 23:50> Time: 22:00 <VAIBHAV Levine - Last Filed: 10/31/22 23:50> Reevaluation #2: CT of the abdomen and pelvis concerning for possible early appendicitis. At this time infection suspected, blood cultures, lactic acid in ceftriaxone ordered. Will reach out to surgery. Patient is now also noted to have a lower blood pressure. Will hydrate with IV fluids. Patient is still reporting pain will give morphine at this time. <VAIBHAV Levine - Last Filed: 10/31/22 23:50> Time: 23:12 <VAIBHAV Levine - Last Filed: 10/31/22 23:50> Reevaluation #3: Surgery will admit a this time for suspected appendicitis. Patient will be NPO aftermidnight. Patient aware of plan. <VAIBHAV Levine - Last Filed: 10/31/22 23:50> Time: 23:49 <VAIBHAV Levine - Last Filed: 10/31/22 23:50> Medications Administered Discontinued Medications Generic Name Dose Route Start Last Admin Trade Name Freq PRN Reason Stop Dose Admin Al Hydroxide/Mg Hydroxide 30 ml 10/31/22 21:39 10/31/22 21:53 Magnesium Hydrox/Alum Hydrox 30 Ml Oral.Susp PO 10/31/22 21:40 30 ml ONCE ONE Administration Belladonna Alkaloids/Phenobarbital 10 ml 10/31/22 21:39 10/31/22 21:52 Phenobarb/Hyoscy/Atropine/Scop 10 Ml Elixir PO 10/31/22 21:40 10 ml ONCE ONE Administration Diphenhydramine HCl 50 mg 11/01/22 01:12 11/01/22 01:17 Diphenhydramine Hcl 50 Mg/Ml Vial IVPUSH 11/01/22 01:13 50 mg ONCE ONE Administration Fentanyl 25 mcg 11/01/22 12:42 11/01/22 13:59 Fentanyl Citrate/Pf 100 Mcg/2 Ml Vial IVPUSH 25 mcg Q5M PRN Administration Pain, Moderate (Pain Scale 4-6 Protocol Hydromorphone HCl 0.5 mg 10/31/22 23:17 11/01/22 22:26 Hydromorphone Hcl 0.5 Mg/0.5 Ml Syringe IVPUSH 0.5 mg Q3H PRN Administration Pain, Severe (Pain Scale 7-10) Protocol Sodium Chloride 1,000 mls @ 999 mls/hr 10/31/22 21:45 10/31/22 23:15 Ns IV 10/31/22 22:45 Infused .Q1H1M KE Infusion Ceftriaxone Sodium 1 gm/ 50 mls @ 100 mls/hr 10/31/22 23:07 11/01/22 00:12 Sodium Chloride IV 10/31/22 23:36 Infused ONCE ONE Infusion Sodium Chloride 1,000 mls @ 999 mls/hr 10/31/22 23:15 11/01/22 00:27 Ns IV 11/01/22 00:15 Infused .Q1H1M KE Infusion Acetaminophen 1,000 mg in 100 mls @ 400 mls/hr 10/31/22 23:30 11/01/22 18:09 Ofirmev IV 11/01/22 17:44 Infused Q6H KE Infusion Dextrose/Lactated Ringer's 1,000 mls @ 125 mls/hr 10/31/22 23:30 11/02/22 07:24 D5lr IVCONT 125 mls/hr .Q8H KE Administration Levofloxacin 500 mg in 100 mls @ 100 mls/hr 10/31/22 23:30 11/01/22 01:17 Levaquin IV Infused Q24H KE Infusion Metronidazole 500 mg in 100 mls @ 100 mls/hr 10/31/22 23:30 11/01/22 00:26 Flagyl IV Not Given Q8H KE Metronidazole 500 mg in 100 mls @ 100 mls/hr 11/01/22 01:00 11/01/22 10:03 Flagyl IV Infused Q8H KE Infusion Iohexol 100 ml 10/31/22 22:52 10/31/22 22:53 Iohexol 350 Mg/Ml 100 Ml Infus..Btl IV 10/31/22 22:53 85 ml ONCE ONE Administration Ketorolac Tromethamine 30 mg 10/31/22 21:39 10/31/22 21:53 Ketorolac Tromethamine 15 Mg/Ml Vial IVPUSH 10/31/22 21:40 30 mg ONCE ONE Administration Levothyroxine Sodium 112 mcg 11/01/22 09:30 11/02/22 07:25 Levothyroxine Sodium 112 Mcg Tablet PO 112 mcg DAILY KE Administration Morphine Sulfate 4 mg 10/31/22 23:13 10/31/22 23:24 Morphine Sulfate 4 Mg/Ml Cartridge IVPUSH 10/31/22 23:14 4 mg ONCE ONE Administration Protocol Ondansetron HCl 4 mg 10/31/22 21:39 10/31/22 21:53 Ondansetron Hcl 4 Mg/2 Ml Vial IVPUSH 10/31/22 21:40 4 mg ONCE ONE Administration Ondansetron HCl 4 mg 10/31/22 23:17 11/01/22 00:58 Ondansetron Hcl 4 Mg/2 Ml Vial IVPUSH 4 mg Q6H PRN Administration Nausea Oxycodone HCl 5 mg 10/31/22 23:17 11/02/22 07:24 Oxycodone Hcl Immed Release 5 Mg Tablet PO 5 mg Q6H PRN Administration Pain, Severe (Pain Scale 7-10) Oxycodone HCl 5 mg 11/01/22 12:42 11/01/22 13:58 Oxycodone Hcl Immed Release 5 Mg Tablet PO 5 mg ONCE PRN Administration Pain, Severe (Pain Scale 7-10) Sodium Chloride 3 ml 11/01/22 00:00 11/02/22 07:25 0.9 % Sodium Chloride Flush 3 Ml Syringe IVFLUSH Not Given [facility] <VAIBHAV Wellington - Last Filed: 11/05/22 16:11> Medications Administered Discontinued Medications Generic Name Dose Route Start Last Admin Trade Name Freq PRN Reason Stop Dose Admin Al Hydroxide/Mg Hydroxide 30 ml 10/31/22 21:39 10/31/22 21:53 Magnesium Hydrox/Alum Hydrox 30 Ml Oral.Susp PO 10/31/22 21:40 30 ml ONCE ONE Administration Belladonna Alkaloids/Phenobarbital 10 ml 10/31/22 21:39 10/31/22 21:52 Phenobarb/Hyoscy/Atropine/Scop 10 Ml Elixir PO 10/31/22 21:40 10 ml ONCE ONE Administration Diphenhydramine HCl 50 mg 11/01/22 01:12 11/01/22 01:17 Diphenhydramine Hcl 50 Mg/Ml Vial IVPUSH 11/01/22 01:13 50 mg ONCE ONE Administration Fentanyl 25 mcg 11/01/22 12:42 11/01/22 13:59 Fentanyl Citrate/Pf 100 Mcg/2 Ml Vial IVPUSH 25 mcg Q5M PRN Administration Pain, Moderate (Pain Scale 4-6 Protocol Hydromorphone HCl 0.5 mg 10/31/22 23:17 11/01/22 22:26 Hydromorphone Hcl 0.5 Mg/0.5 Ml Syringe IVPUSH 0.5 mg Q3H PRN Administration Pain, Severe (Pain Scale 7-10) Protocol Sodium Chloride 1,000 mls @ 999 mls/hr 10/31/22 21:45 10/31/22 23:15 Ns IV 10/31/22 22:45 Infused .Q1H1M KE Infusion Ceftriaxone Sodium 1 gm/ 50 mls @ 100 mls/hr 10/31/22 23:07 11/01/22 00:12 Sodium Chloride IV 10/31/22 23:36 Infused ONCE ONE Infusion Sodium Chloride 1,000 mls @ 999 mls/hr 10/31/22 23:15 11/01/22 00:27 Ns IV 11/01/22 00:15 Infused .Q1H1M KE Infusion Acetaminophen 1,000 mg in 100 mls @ 400 mls/hr 10/31/22 23:30 11/01/22 18:09 Ofirmev IV 11/01/22 17:44 Infused Q6H KE Infusion Dextrose/Lactated Ringer's 1,000 mls @ 125 mls/hr 10/31/22 23:30 11/02/22 07:24 D5lr IVCONT 125 mls/hr .Q8H KE Administration Levofloxacin 500 mg in 100 mls @ 100 mls/hr 10/31/22 23:30 11/01/22 01:17 Levaquin IV Infused Q24H KE Infusion Metronidazole 500 mg in 100 mls @ 100 mls/hr 10/31/22 23:30 11/01/22 00:26 Flagyl IV Not Given Q8H KE Metronidazole 500 mg in 100 mls @ 100 mls/hr 11/01/22 01:00 11/01/22 10:03 Flagyl IV Infused Q8H KE Infusion Iohexol 100 ml 10/31/22 22:52 10/31/22 22:53 Iohexol 350 Mg/Ml 100 Ml Infus..Btl IV 10/31/22 22:53 85 ml ONCE ONE Administration Ketorolac Tromethamine 30 mg 10/31/22 21:39 10/31/22 21:53 Ketorolac Tromethamine 15 Mg/Ml Vial IVPUSH 10/31/22 21:40 30 mg ONCE ONE Administration Levothyroxine Sodium 112 mcg 11/01/22 09:30 11/02/22 07:25 Levothyroxine Sodium 112 Mcg Tablet PO 112 mcg DAILY KE Administration Morphine Sulfate 4 mg 10/31/22 23:13 10/31/22 23:24 Morphine Sulfate 4 Mg/Ml Cartridge IVPUSH 10/31/22 23:14 4 mg ONCE ONE Administration Protocol Ondansetron HCl 4 mg 10/31/22 21:39 10/31/22 21:53 Ondansetron Hcl 4 Mg/2 Ml Vial IVPUSH 10/31/22 21:40 4 mg ONCE ONE Administration Ondansetron HCl 4 mg 10/31/22 23:17 11/01/22 00:58 Ondansetron Hcl 4 Mg/2 Ml Vial IVPUSH 4 mg Q6H PRN Administration Nausea Oxycodone HCl 5 mg 10/31/22 23:17 11/02/22 07:24 Oxycodone Hcl Immed Release 5 Mg Tablet PO 5 mg Q6H PRN Administration Pain, Severe (Pain Scale 7-10) Oxycodone HCl 5 mg 11/01/22 12:42 11/01/22 13:58 Oxycodone Hcl Immed Release 5 Mg Tablet PO 5 mg ONCE PRN Administration Pain, Severe (Pain Scale 7-10) Sodium Chloride 3 ml 11/01/22 00:00 11/02/22 07:25 0.9 % Sodium Chloride Flush 3 Ml Syringe IVFLUSH Not Given [facility] <VAIBHAV Levine - Last Filed: 10/31/22 23:50> Medications Administered Discontinued Medications Generic Name Dose Route Start Last Admin Trade Name Freq PRN Reason Stop Dose Admin Al Hydroxide/Mg Hydroxide 30 ml 10/31/22 21:39 10/31/22 21:53 Magnesium Hydrox/Alum Hydrox 30 Ml Oral.Susp PO 10/31/22 21:40 30 ml ONCE ONE Administration Belladonna Alkaloids/Phenobarbital 10 ml 10/31/22 21:39 10/31/22 21:52 Phenobarb/Hyoscy/Atropine/Scop 10 Ml Elixir PO 10/31/22 21:40 10 ml ONCE ONE Administration Diphenhydramine HCl 50 mg 11/01/22 01:12 11/01/22 01:17 Diphenhydramine Hcl 50 Mg/Ml Vial IVPUSH 11/01/22 01:13 50 mg ONCE ONE Administration Fentanyl 25 mcg 11/01/22 12:42 11/01/22 13:59 Fentanyl Citrate/Pf 100 Mcg/2 Ml Vial IVPUSH 25 mcg Q5M PRN Administration Pain, Moderate (Pain Scale 4-6 Protocol Hydromorphone HCl 0.5 mg 10/31/22 23:17 11/01/22 22:26 Hydromorphone Hcl 0.5 Mg/0.5 Ml Syringe IVPUSH 0.5 mg Q3H PRN Administration Pain, Severe (Pain Scale 7-10) Protocol Sodium Chloride 1,000 mls @ 999 mls/hr 10/31/22 21:45 10/31/22 23:15 Ns IV 10/31/22 22:45 Infused .Q1H1M KE Infusion Ceftriaxone Sodium 1 gm/ 50 mls @ 100 mls/hr 10/31/22 23:07 11/01/22 00:12 Sodium Chloride IV 10/31/22 23:36 Infused ONCE ONE Infusion Sodium Chloride 1,000 mls @ 999 mls/hr 10/31/22 23:15 11/01/22 00:27 Ns IV 11/01/22 00:15 Infused .Q1H1M KE Infusion Acetaminophen 1,000 mg in 100 mls @ 400 mls/hr 10/31/22 23:30 11/01/22 18:09 Ofirmev IV 11/01/22 17:44 Infused Q6H KE Infusion Dextrose/Lactated Ringer's 1,000 mls @ 125 mls/hr 10/31/22 23:30 11/02/22 07:24 D5lr IVCONT 125 mls/hr .Q8H KE Administration Levofloxacin 500 mg in 100 mls @ 100 mls/hr 10/31/22 23:30 11/01/22 01:17 Levaquin IV Infused Q24H KE Infusion Metronidazole 500 mg in 100 mls @ 100 mls/hr 10/31/22 23:30 11/01/22 00:26 Flagyl IV Not Given Q8H KE Metronidazole 500 mg in 100 mls @ 100 mls/hr 11/01/22 01:00 11/01/22 10:03 Flagyl IV Infused Q8H KE Infusion Iohexol 100 ml 10/31/22 22:52 10/31/22 22:53 Iohexol 350 Mg/Ml 100 Ml Infus..Btl IV 10/31/22 22:53 85 ml ONCE ONE Administration Ketorolac Tromethamine 30 mg 10/31/22 21:39 10/31/22 21:53 Ketorolac Tromethamine 15 Mg/Ml Vial IVPUSH 10/31/22 21:40 30 mg ONCE ONE Administration Levothyroxine Sodium 112 mcg 11/01/22 09:30 11/02/22 07:25 Levothyroxine Sodium 112 Mcg Tablet PO 112 mcg DAILY KE Administration Morphine Sulfate 4 mg 10/31/22 23:13 10/31/22 23:24 Morphine Sulfate 4 Mg/Ml Cartridge IVPUSH 10/31/22 23:14 4 mg ONCE ONE Administration Protocol Ondansetron HCl 4 mg 10/31/22 21:39 10/31/22 21:53 Ondansetron Hcl 4 Mg/2 Ml Vial IVPUSH 10/31/22 21:40 4 mg ONCE ONE Administration Ondansetron HCl 4 mg 10/31/22 23:17 11/01/22 00:58 Ondansetron Hcl 4 Mg/2 Ml Vial IVPUSH 4 mg Q6H PRN Administration Nausea Oxycodone HCl 5 mg 10/31/22 23:17 11/02/22 07:24 Oxycodone Hcl Immed Release 5 Mg Tablet PO 5 mg Q6H PRN Administration Pain, Severe (Pain Scale 7-10) Oxycodone HCl 5 mg 11/01/22 12:42 11/01/22 13:58 Oxycodone Hcl Immed Release 5 Mg Tablet PO 5 mg ONCE PRN Administration Pain, Severe (Pain Scale 7-10) Sodium Chloride 3 ml 11/01/22 00:00 11/02/22 07:25 0.9 % Sodium Chloride Flush 3 Ml Syringe IVFLUSH Not Given QSHIFT [facility] <Elfego Hurt MD - Last Filed: 10/31/22 23:51> Medical Decision Making Medical Decision Making [facility] Narrative: [id number]-year-old female presents with nausea, vomiting, anorexia, epigastric pain with radiation to lower abdomen since this morning. Physical exam with tenderness epigastric region and right lower quadrant. Concerns for possible appendicitis versus viral illness. No signs of acute abdomen, diverticulitis, cholecystitis, pancreatitis. Other differentials include gastritis or GERD. Plan at this time labs, imaging. <VAIBHAV Levine - Last Filed: 10/31/22 23:50> Differential Diagnosis Differential Diagnoses: The differential diagnosis associated with the presentation includes <VAIBHAV Levine - Last Filed: 10/31/22 23:50> Concerns for possible appendicitis versus viral illness. No signs of acute abdomen, diverticulitis, cholecystitis, pancreatitis. Other differentials include gastritis or GERD. <VAIBHAV Levine - Last Filed: 10/31/22 23:50> Consult Healthcare Provider Management of the patient was discussed with: [employer] (Surgery) <VAIBHAV Levine - Last Filed: 10/31/22 23:50> Lab Data [facility] Lab Attestation statement: I reviewed the patient's lab results. <VAIBHAV Levine - Last Filed: 10/31/22 23:50> Result Diagrams: 10/31/22 18:12 10/31/22 18:12 <VAIBHAV Wellington - Last Filed: 11/05/22 16:11> Labs: Lab Results 10/31/22 10/31/22 10/31/22 Range/Units 18:12 18:12 18:12 WBC 14.9 H (4.8-10.8) X10*3/uL RBC 4.81 (4.20-5.50) X10*6/uL Hgb 14.9 (12.0-16.0) g/dl Hct 44.0 (37.0-47.0) % MCV 91.5 (80.0-98.0) fL MCH 31.0 (27.0-33.0) pg MCHC 33.9 (31.0-35.0) g/dl RDW 12.3 (11.0-16.0) % Plt Count 324 (160-400) X10*3/uL MPV 9.3 L (9.4-12.3) fL Immature Gran % (Auto) 0.4 (0.0-0.4) % Neut % (Auto) 90.2 H (45-73) % Lymph % (Auto) 5.8 L (20-40) % Bremer % (Auto) 3.1 (2-11) % Eos % (Auto) 0.2 (0-4) % Baso % (Auto) 0.3 (0-2) % Lymph # (Auto) 0.9 L (1.2-4.9) X10*3/uL Bremer # (Auto) 0.5 (0.1-1.2) X10*3/uL Eos # (Auto) 0.0 (0.0-0.4) X10*3/uL Baso # (Auto) 0.0 (0.0-0.2) X10*3/uL Abs Immat Gran (auto) 0.06 H (0.00-0.03) X10*3/uL Absolute Neuts (auto) 13.5 H (2.0-8.3) x10*3/uL Absolute Nucleated RBC 0.000 (0.0-0.012) X10*3/uL Nucleated RBC % (auto) 0.0 (0.0-0.2) /100WBC PT (10.0-13.1) SEC INR (0.9-1.1) APTT (26.0-36.4) SEC Sodium 139 (135-145) mmol/L Potassium 4.1 (3.3-5.1) mmol/L Chloride 105 (96-108) mmol/L Carbon Dioxide 25 (22-29) mmol/L Anion Gap 13 (12-20) BUN 16 (9-16) mg/dL Creatinine 0.72 (0.5-1.4) mg/dL Estim Creat Clear Calc 98.1 Estimated GFR > 60 Random Glucose 119 H (60-115) mg/dL Calcium 8.9 (8.4-10.2) mg/dL Total Bilirubin 1.0 (0.0-1.0) mg/dL AST 26 (5-31) U/L ALT 19 (0-31) U/L Alkaline Phosphatase 47 (39-117) U/L Total Protein 7.1 (6.5-8.0) g/dL Albumin 4.3 (3.5-5.0) g/dL Lipase 23 (8-78) U/L Beta HCG, Quant mIU/mL Influenza Type A (PCR) NEGATIVE (Negative) Influenza Type B (PCR) NEGATIVE (Negative) RSV RNA Qual (PCR) NEGATIVE (Negative) SARS-CoV-2 RNA (RT-PCR) NEGATIVE (Negative) 10/31/22 10/31/22 Range/Units 18:12 18:12 WBC (4.8-10.8) X10*3/uL RBC (4.20-5.50) X10*6/uL Hgb (12.0-16.0) g/dl Hct (37.0-47.0) % MCV (80.0-98.0) fL MCH (27.0-33.0) pg MCHC (31.0-35.0) g/dl RDW (11.0-16.0) % Plt Count (160-400) X10*3/uL MPV (9.4-12.3) fL Immature Gran % (Auto) (0.0-0.4) % Neut % (Auto) (45-73) % Lymph % (Auto) (20-40) % Bremer % (Auto) (2-11) % Eos % (Auto) (0-4) % Baso % (Auto) (0-2) % Lymph # (Auto) (1.2-4.9) X10*3/uL Bremer # (Auto) (0.1-1.2) X10*3/uL Eos # (Auto) (0.0-0.4) X10*3/uL Baso # (Auto) (0.0-0.2) X10*3/uL Abs Immat Gran (auto) (0.00-0.03) X10*3/uL Absolute Neuts (auto) (2.0-8.3) x10*3/uL Absolute Nucleated RBC (0.0-0.012) X10*3/uL Nucleated RBC % (auto) (0.0-0.2) /100WBC PT 13.0 (10.0-13.1) SEC INR 1.1 (0.9-1.1) APTT 31.0 (26.0-36.4) SEC Sodium (135-145) mmol/L Potassium (3.3-5.1) mmol/L Chloride (96-108) mmol/L Carbon Dioxide (22-29) mmol/L Anion Gap (12-20) BUN (9-16) mg/dL Creatinine (0.5-1.4) mg/dL Estim Creat Clear Calc Estimated GFR Random Glucose (60-115) mg/dL Calcium (8.4-10.2) mg/dL Total Bilirubin (0.0-1.0) mg/dL AST (5-31) U/L ALT (0-31) U/L Alkaline Phosphatase (39-117) U/L Total Protein (6.5-8.0) g/dL Albumin (3.5-5.0) g/dL Lipase (8-78) U/L Beta HCG, Quant < 2 mIU/mL Influenza Type A (PCR) (Negative) Influenza Type B (PCR) (Negative) RSV RNA Qual (PCR) (Negative) SARS-CoV-2 RNA (RT-PCR) (Negative) <VAIBHAV Wellington - Last Filed: 11/05/22 16:11> Lab Results 10/31/22 10/31/22 10/31/22 Range/Units 18:12 18:12 18:12 WBC 14.9 H (4.8-10.8) X10*3/uL RBC 4.81 (4.20-5.50) X10*6/uL Hgb 14.9 (12.0-16.0) g/dl Hct 44.0 (37.0-47.0) % MCV 91.5 (80.0-98.0) fL MCH 31.0 (27.0-33.0) pg MCHC 33.9 (31.0-35.0) g/dl RDW 12.3 (11.0-16.0) % Plt Count 324 (160-400) X10*3/uL MPV 9.3 L (9.4-12.3) fL Immature Gran % (Auto) 0.4 (0.0-0.4) % Neut % (Auto) 90.2 H (45-73) % Lymph % (Auto) 5.8 L (20-40) % Bremer % (Auto) 3.1 (2-11) % Eos % (Auto) 0.2 (0-4) % Baso % (Auto) 0.3 (0-2) % Lymph # (Auto) 0.9 L (1.2-4.9) X10*3/uL Bremer # (Auto) 0.5 (0.1-1.2) X10*3/uL Eos # (Auto) 0.0 (0.0-0.4) X10*3/uL Baso # (Auto) 0.0 (0.0-0.2) X10*3/uL Abs Immat Gran (auto) 0.06 H (0.00-0.03) X10*3/uL Absolute Neuts (auto) 13.5 H (2.0-8.3) x10*3/uL Absolute Nucleated RBC 0.000 (0.0-0.012) X10*3/uL Nucleated RBC % (auto) 0.0 (0.0-0.2) /100WBC PT (10.0-13.1) SEC INR (0.9-1.1) APTT (26.0-36.4) SEC Sodium 139 (135-145) mmol/L Potassium 4.1 (3.3-5.1) mmol/L Chloride 105 (96-108) mmol/L Carbon Dioxide 25 (22-29) mmol/L Anion Gap 13 (12-20) BUN 16 (9-16) mg/dL Creatinine 0.72 (0.5-1.4) mg/dL Estim Creat Clear Calc 98.1 Estimated GFR > 60 Random Glucose 119 H (60-115) mg/dL Calcium 8.9 (8.4-10.2) mg/dL Total Bilirubin 1.0 (0.0-1.0) mg/dL AST 26 (5-31) U/L ALT 19 (0-31) U/L Alkaline Phosphatase 47 (39-117) U/L Total Protein 7.1 (6.5-8.0) g/dL Albumin 4.3 (3.5-5.0) g/dL Lipase 23 (8-78) U/L Beta HCG, Quant mIU/mL Influenza Type A (PCR) NEGATIVE (Negative) Influenza Type B (PCR) NEGATIVE (Negative) RSV RNA Qual (PCR) NEGATIVE (Negative) SARS-CoV-2 RNA (RT-PCR) NEGATIVE (Negative) 10/31/22 10/31/22 Range/Units 18:12 18:12 WBC (4.8-10.8) X10*3/uL RBC (4.20-5.50) X10*6/uL Hgb (12.0-16.0) g/dl Hct (37.0-47.0) % MCV (80.0-98.0) fL MCH (27.0-33.0) pg MCHC (31.0-35.0) g/dl RDW (11.0-16.0) % Plt Count (160-400) X10*3/uL MPV (9.4-12.3) fL Immature Gran % (Auto) (0.0-0.4) % Neut % (Auto) (45-73) % Lymph % (Auto) (20-40) % Bremer % (Auto) (2-11) % Eos % (Auto) (0-4) % Baso % (Auto) (0-2) % Lymph # (Auto) (1.2-4.9) X10*3/uL Bremer # (Auto) (0.1-1.2) X10*3/uL Eos # (Auto) (0.0-0.4) X10*3/uL Baso # (Auto) (0.0-0.2) X10*3/uL Abs Immat Gran (auto) (0.00-0.03) X10*3/uL Absolute Neuts (auto) (2.0-8.3) x10*3/uL Absolute Nucleated RBC (0.0-0.012) X10*3/uL Nucleated RBC % (auto) (0.0-0.2) /100WBC PT 13.0 (10.0-13.1) SEC INR 1.1 (0.9-1.1) APTT 31.0 (26.0-36.4) SEC Sodium (135-145) mmol/L Potassium (3.3-5.1) mmol/L Chloride (96-108) mmol/L Carbon Dioxide (22-29) mmol/L Anion Gap (12-20) BUN (9-16) mg/dL Creatinine (0.5-1.4) mg/dL Estim Creat Clear Calc Estimated GFR Random Glucose (60-115) mg/dL Calcium (8.4-10.2) mg/dL Total Bilirubin (0.0-1.0) mg/dL AST (5-31) U/L ALT (0-31) U/L Alkaline Phosphatase (39-117) U/L Total Protein (6.5-8.0) g/dL Albumin (3.5-5.0) g/dL Lipase (8-78) U/L Beta HCG, Quant < 2 mIU/mL Influenza Type A (PCR) (Negative) Influenza Type B (PCR) (Negative) RSV RNA Qual (PCR) (Negative) SARS-CoV-2 RNA (RT-PCR) (Negative) <VAIBHAV Levine - Last Filed: 10/31/22 23:50> Lab Results 10/31/22 10/31/22 10/31/22 Range/Units 18:12 18:12 18:12 WBC 14.9 H (4.8-10.8) X10*3/uL RBC 4.81 (4.20-5.50) X10*6/uL Hgb 14.9 (12.0-16.0) g/dl Hct 44.0 (37.0-47.0) % MCV 91.5 (80.0-98.0) fL MCH 31.0 (27.0-33.0) pg MCHC 33.9 (31.0-35.0) g/dl RDW 12.3 (11.0-16.0) % Plt Count 324 (160-400) X10*3/uL MPV 9.3 L (9.4-12.3) fL Immature Gran % (Auto) 0.4 (0.0-0.4) % Neut % (Auto) 90.2 H (45-73) % Lymph % (Auto) 5.8 L (20-40) % [place] % (Auto) 3.1 (2-11) % Eos % (Auto) 0.2 (0-4) % Baso % (Auto) 0.3 (0-2) % Lymph # (Auto) 0.9 L (1.2-4.9) X10*3/uL [place] # (Auto) 0.5 (0.1-1.2) X10*3/uL Eos # (Auto) 0.0 (0.0-0.4) X10*3/uL Baso # (Auto) 0.0 (0.0-0.2) X10*3/uL Abs Immat Gran (auto) 0.06 H (0.00-0.03) X10*3/uL Absolute Neuts (auto) 13.5 H (2.0-8.3) x10*3/uL Absolute Nucleated RBC 0.000 (0.0-0.012) X10*3/uL Nucleated RBC % (auto) 0.0 (0.0-0.2) /100WBC PT (10.0-13.1) SEC INR (0.9-1.1) APTT (26.0-36.4) SEC Sodium 139 (135-145) mmol/L Potassium 4.1 (3.3-5.1) mmol/L Chloride 105 (96-108) mmol/L Carbon Dioxide 25 (22-29) mmol/L Anion Gap 13 (12-20) BUN 16 (9-16) mg/dL Creatinine 0.72 (0.5-1.4) mg/dL Estim Creat Clear Calc 98.1 Estimated GFR > 60 Random Glucose 119 H (60-115) mg/dL Calcium 8.9 (8.4-10.2) mg/dL Total Bilirubin 1.0 (0.0-1.0) mg/dL AST 26 (5-31) U/L ALT 19 (0-31) U/L Alkaline Phosphatase 47 (39-117) U/L Total Protein 7.1 (6.5-8.0) g/dL Albumin 4.3 (3.5-5.0) g/dL Lipase 23 (8-78) U/L Beta HCG, Quant mIU/mL Influenza Type A (PCR) NEGATIVE (Negative) Influenza Type B (PCR) NEGATIVE (Negative) RSV RNA Qual (PCR) NEGATIVE (Negative) SARS-CoV-2 RNA (RT-PCR) NEGATIVE (Negative) 10/31/22 10/31/22 Range/Units 18:12 18:12 WBC (4.8-10.8) X10*3/uL RBC (4.20-5.50) X10*6/uL Hgb (12.0-16.0) g/dl Hct (37.0-47.0) % MCV (80.0-98.0) fL MCH (27.0-33.0) pg MCHC (31.0-35.0) g/dl RDW (11.0-16.0) % Plt Count (160-400) X10*3/uL MPV (9.4-12.3) fL Immature Gran % (Auto) (0.0-0.4) % Neut % (Auto) (45-73) % Lymph % (Auto) (20-40) % [place] % (Auto) (2-11) % Eos % (Auto) (0-4) % Baso % (Auto) (0-2) % Lymph # (Auto) (1.2-4.9) X10*3/uL [place] # (Auto) (0.1-1.2) X10*3/uL Eos # (Auto) (0.0-0.4) X10*3/uL Baso # (Auto) (0.0-0.2) X10*3/uL Abs Immat Gran (auto) (0.00-0.03) X10*3/uL Absolute Neuts (auto) (2.0-8.3) x10*3/uL Absolute Nucleated RBC (0.0-0.012) X10*3/uL Nucleated RBC % (auto) (0.0-0.2) /100WBC PT 13.0 (10.0-13.1) SEC INR 1.1 (0.9-1.1) APTT 31.0 (26.0-36.4) SEC Sodium (135-145) mmol/L Potassium (3.3-5.1) mmol/L Chloride (96-108) mmol/L Carbon Dioxide (22-29) mmol/L Anion Gap (12-20) BUN (9-16) mg/dL Creatinine (0.5-1.4) mg/dL Estim Creat Clear Calc Estimated GFR Random Glucose (60-115) mg/dL Calcium (8.4-10.2) mg/dL Total Bilirubin (0.0-1.0) mg/dL AST (5-31) U/L ALT (0-31) U/L Alkaline Phosphatase (39-117) U/L Total Protein (6.5-8.0) g/dL Albumin (3.5-5.0) g/dL Lipase (8-78) U/L Beta HCG, Quant < 2 mIU/mL Influenza Type A (PCR) (Negative) Influenza Type B (PCR) (Negative) RSV RNA Qual (PCR) (Negative) SARS-CoV-2 RNA (RT-PCR) (Negative) <Elfego Hurt MD - Last Filed: 10/31/22 23:51> Independent Interpretation I performed an independent interpretation of an: CT Scan (Concerns for possible appendicitis) <VAIBHAV Levine - Last Filed: 10/31/22 23:50> Radiology Impression Discussion of test interpretation with radiology: I have reviewed the radiologist's reading. <VAIBHAV Levine - Last Filed: 10/31/22 23:50> Core Measures AMI core measures followed: Yes <VAIBHAV Levine - Last Filed: 10/31/22 23:50> Measure exclusions: not indicated <VAIBHAV Levine - Last Filed: 10/31/22 23:50> Attestation Attending Attestation: I reviewed PEDIATRIC CARDIOLOGIST/PA/Resident note, assessment and plan. I agree with the documentation, assessment and plan unless otherwise stated. <Elfego Hurt MD - Last Filed: 10/31/22 23:51> Critical Care Time Critical Care Time Critical Care Time: No <VAIBHAV Levine - Last Filed: 10/31/22 23:50> Discharge Plan Discharge Clinical Impression: Acute appendicitis <VAIBHAV Wellington - Last Filed: 11/05/22 16:11> Patient Disposition: Admitted As Inpatient <VAIBHAV [place] - Last Filed: 11/05/22 16:11> Discharge Date/Time: 11/01/22 11:51 <VABIHAV Wellington - Last Filed: 11/05/22 16:11>
[2022-10-31 18:22] LABS: MANUAL DIFF FLAG NO
[2022-10-31 18:24] LABS: Basophils Percent Auto 0.3 % (0-2); Eosinophils Percent Auto 0.2 % (0-4); Hemoglobin 14.9 g/dl (12.0-16.0); Imm Gran Abs Auto 0.06 X10*3/uL (0.00-0.03); Imm Gran Pct Auto 0.4 % (0.0-0.4); Lymphocytes Absolute Auto 0.9 X10*3/uL (1.2-4.9); Lymphocytes Percent Auto 5.8 % (20-40); Mean Corpuscular HGB Conc 33.9 g/dl (31.0-35.0); Mean Corpuscular Volume 91.5 fL (80.0-98.0); Mean Platelet Volume 9.3 fL (9.4-12.3); Monocytes Absolute Auto 0.5 X10*3/uL (0.1-1.2); Monocytes Percent Auto 3.1 % (2-11); Neutrophils Absolute Auto 13.5 x10*3/uL (2.0-8.3); Neutrophils Percent Auto 90.2 % (45-73); Platelet Count 324 X10*3/uL (160-400); Red Blood Count 4.81 X10*6/uL (4.20-5.50); Red Cell Distribution Width 12.3 % (11.0-16.0); SCAN SMEAR FLAG 1; White Blood Count 14.9 X10*3/uL (4.8-10.8)
[2022-10-31 18:37] LABS: Alanine Aminotransferase 19 U/L (0-31); Albumin Level 4.3 g/dL (3.5-5.0); Alkaline Phosphatase 47 U/L (39-117); Anion Gap 13 (12-20); Aspartate Amino Transferase 26 U/L (5-31); Blood Urea Nitrogen 16 mg/dL (9-16); Calcium 8.9 mg/dL (8.4-10.2); Carbon Dioxide 25 mmol/L (22-29); Chloride 105 mmol/L (96-108); Creatinine Clr Calc Pharmacy 98.1; Estimated Glomerular Filt Rate > 60; Glucose Random 119 mg/dL (60-115); Lipase 23 U/L (8-78); Potassium 4.1 mmol/L (3.3-5.1); Sodium 139 mmol/L (135-145); Total Protein 7.1 g/dL (6.5-8.0)
[2022-10-31 18:45] LABS: INTERNATIONAL NORM RATIO 1.1 (0.9-1.1)
[2022-10-31 18:46] LABS: HCG Quantitative < 2 mIU/mL
[2022-10-31 19:00] LABS: Influenza A PCR NEGATIVE (Negative); Influenza B PCR NEGATIVE (Negative); Resp Syncy Virus RNA Qual PCR NEGATIVE (Negative); SARS COV2 PCR INHOUSE NEGATIVE (Negative)
[2022-10-31] MEDS: PHENobarb/Hyoscy/Atropine/Scop 10 ML ELIXIR PO (21:52)
[2022-10-31] MEDS: Ketorolac Tromethamine 15 MG/ML VIAL 30 MG IVPUSH (21:53)
[2022-10-31] MEDS: ondansetron HCL 4 MG/2 ML VIAL IVPUSH (21:53)
[2022-10-31] MEDS: Magnesium Hydrox/Alum Hydrox 30 ML ORAL.SUSP PO (21:53)
[2022-10-31] MEDS: 0.9 % Sodium Chloride 1,000 ML 999 ML IV ×2 (22:02→23:24)
[2022-10-31] MEDS: iohexoL 350 MG/ML 100 ML INFUS..BTL IV (22:53)
[2022-10-31 22:57] VITALS: BP 104/57; PULSE 67; RESP 13; TEMP 36.8; O2SAT 99
[2022-10-31] MEDS: Morphine Sulfate 4 MG/ML CARTRIDGE IVPUSH (23:24)
[2022-10-31] MEDS: Acetaminophen 1,000 MG/100 ML PIGGYBACK 400 MG IV (23:43)
[2022-10-31] MEDS: cefTRIAXone sodium 1 GM in 0.9 % Sodium Chloride 50 ML IV (23:43)
[2022-10-31 23:59] LABS: Lactic Acid 0.9 mmol/L (0.5-2.0)
[2022-11-01] VITALS (19 sets, daily range): BP systolic 95–135; BP diastolic 56–87; PULSE 56–98; RESP 14–19; TEMP 36.1–37.1; O2SAT 98–100
[2022-11-01] MEDS: Dextrose 5 % and Lactated Ring 1,000 ML 125 ML IVCONT ×3 (00:19→22:22)
[2022-11-01] MEDS: levoFLOXacin/D5W 500 MG/100 ML PIGGYBACK 100 MG IV (00:19)
[2022-11-01] MEDS: 0.9 % Sodium Chloride Flush 3 ML SYRINGE IVFLUSH (00:20)
[2022-11-01] MEDS: ondansetron HCL 4 MG/2 ML VIAL IVPUSH (00:58)
--- NOTE | 2022-11-01 01:08 | PC.NURSE ---
Pt reported to this RN some SOB and nausea. VAIBHAV Robledo in room, verbal order to give Benadryl 50mg. Pt reports she does not want any more antibiotics since it may have caused a reaction and made it hard to breathe. is aware at this time. Pt is satting well at 100% on room air
[2022-11-01] MEDS: diphenhydrAMINE HCL 50 MG/ML VIAL IVPUSH (01:17)
[2022-11-01] MEDS: Acetaminophen 1,000 MG/100 ML PIGGYBACK 400 MG IV ×2 (05:50→17:37)
[2022-11-01 06:08] LABS: Appearance Urine Clear; Color Urine Yellow; Glucose Urine UA Negative (Negative); Leukocyte Esterase Urine Negative (Negative); Nitrite Urine Negative (Negative); PH 5.5 (5.0-9.0); Specific Gravity - Urine >= 1.030 (1.005-1.025); UMIC TRIGGER UACC YES; Urine Blood Negative (Negative); Urine Ketones 15 mg/dL (Negative); Urine Protein 30 (1+) mg/dL (Neg-Trace)
[2022-11-01 06:19] LABS: MANUAL DIFF FLAG NO
[2022-11-01 06:24] LABS: Basophils Percent Auto 0.4 % (0-2); Eosinophils Absolute Auto 0.1 X10*3/uL (0.0-0.4); Eosinophils Percent Auto 0.6 % (0-4); Hematocrit 37.6 % (37.0-47.0); Hemoglobin 12.5 g/dl (12.0-16.0); Imm Gran Abs Auto 0.03 X10*3/uL (0.00-0.03); Imm Gran Pct Auto 0.3 % (0.0-0.4); Lymphocytes Absolute Auto 1.5 X10*3/uL (1.2-4.9); Lymphocytes Percent Auto 15.2 % (20-40); Mean Corpuscular HGB Conc 33.2 g/dl (31.0-35.0); Mean Corpuscular Hemoglobin 31.2 pg (27.0-33.0); Mean Corpuscular Volume 93.8 fL (80.0-98.0); Mean Platelet Volume 9.3 fL (9.4-12.3); Monocytes Absolute Auto 0.5 X10*3/uL (0.1-1.2); Monocytes Percent Auto 5.1 % (2-11); Neutrophils Absolute Auto 7.7 x10*3/uL (2.0-8.3); Neutrophils Percent Auto 78.4 % (45-73); Platelet Count 292 X10*3/uL (160-400); Red Blood Count 4.01 X10*6/uL (4.20-5.50); Red Cell Distribution Width 12.3 % (11.0-16.0); White Blood Count 9.8 X10*3/uL (4.8-10.8)
[2022-11-01 06:28] LABS: Bacteria Urine None Seen (None Seen); Hyaline Casts Urine 0-2 /LPF (0-2); RBC Urine 0-2 /HPF (0-2); Squamous Epithelial Cell Urine 0-2 /HPF (0-2); WBC Urine 0-5 /HPF (0-5)
--- NOTE | 2022-11-01 06:31 | PC.NURSE ---
patient ambulatory to and from bathroom with steady gait
[2022-11-01 06:45] LABS: Glucose, Whole Blood 89 mg/dL (60-115)
[2022-11-01] MEDS: oxyCODONE HCl Immed Release 5 MG TABLET PO ×3 (07:10→18:27)
--- NOTE | 2022-11-01 07:39 | P.HPGS_ITS ---
History of Present Illness History of Present Illness Date of Service: 11/01/22 Chief complaint: Acute appendicitis Narrative: Lavinia Schmidt is a 37 year old female presenting with complaints of abdominal pain begining in the epigastrium, then radiating to the lower right abdomen, associated with nausea, vomiting, and diarrhea. She denies a previous history of similar symptoms. The pain began last night and worsened in severity until she presented to the emergency department. At the pain is worst she reports 8/10 in severity. Currently she is at 6/10. She continues to report nausea and anorexia. She denies fever or chills. Her past history is significant for a gastric bypass performed by Dr. Naranjo at [facility]. She denies any complications following this procedure. Workup in the emergency department revealed a WBC of 14.[address] suspicious for early appendicitis. She is admitted to the surgical service for further management of acute appendicitis. Overnight she was placed on IV antibiotics but continues to have pain in the right lower quadrant. Review of Systems Review of Systems: Yes all other systems are reviewed and are negative Constitutional: Constitutional: Denies chills, Denies fever(s), Denies headache(s), Denies poor appetite and Denies weakness ENT: Denies headache(s) Cardiovascular: Cardiovascular: Denies chest pain, Denies irregular heart rhythm, Denies palpitations and Denies dyspnea Respiratory: Respiratory: Denies cough, Denies excessive phlegm production and Denies dyspnea Gastrointestinal: Gastrointestinal: Reports abdominal pain, Reports bloating, Denies change in bowel habits, Denies constipation, Denies heartburn, Reports diarrhea, Reports nausea and Reports vomiting Genitourinary: Genitourinary: Denies urinary frequency Musculoskeletal: Musculoskeletal: Denies back pain, Denies muscle weakness and Denies numbness Integumentary/Breasts: Skin/Breast: Denies changing lesions and Denies unusual bruising Neurologic: Denies headache(s), Denies numbness, Denies paresthesias and Denies weakness Psychiatric: Psychiatric: Denies anxiety and Denies depression Endocrine: Endocrine: Denies palpitations Hematologic/Lymphatic: Hematologic/Lymphatic: Denies lymphadenopathy PMF Past Medical History Medical History Hypothyroidism Vitamin D deficiency Family History Family History Father Diabetes Hypothyroidism Hypertension Mother Hypertension Surgical History Surgical History Hx of bariatric surgery Hx of cholecystectomy Hx of tubal ligation Social History Social History Alcohol intake: never Patient Tobacco Use Status: Never used Tobacco Advance Directives: No Advance Directives Information Provided: No Nutrition Risks: No Nutritional Risk Meds Allergies Allergy/AdvReac Type Severity Reaction Status Date / Time erythromycin base Allergy Unknown UNKNOWN Verified 06/30/21 13:57 [ERYTHROMYCIN BASE] Penicillins [PCN] Allergy Unknown UNKNOWN Verified 06/30/21 13:57 Azithromycin Allergy Unknown shortness Uncoded 06/30/21 13:57 of breath penicillin Allergy Unknown shortness Uncoded 06/30/21 13:57 of breath Active Medications: Current Medications Hydromorphone HCl (Hydromorphone Hcl 0.5 Mg/0.5 Ml Syringe) 0.5 mg IVPUSH Q3H PRN; Protocol PRN Reason: Pain, Severe (Pain Scale 7-10) Acetaminophen (Ofirmev) 1,000 mg in 100 mls @ 400 mls/hr IV Q6H [facility] Stop: 11/01/22 17:44 Last Infusion: 11/01/22 06:11 Dose: Infused Dextrose/Lactated Ringer's (D5lr) 1,000 mls @ 125 mls/hr IVCONT .Q8H [facility] Last Admin: 11/01/22 07:10 Dose: Not Given Levofloxacin (Levaquin) 500 mg in 100 mls @ 100 mls/hr IV Q24H [facility] Last Infusion: 11/01/22 01:17 Dose: Infused Metronidazole (Flagyl) 500 mg in 100 mls @ 100 mls/hr IV Q8H [facility] Last Admin: 11/01/22 01:08 Dose: Not Given Ondansetron HCl (Ondansetron Hcl 4 Mg/2 Ml Vial) 4 mg IVPUSH Q6H PRN PRN Reason: Nausea Last Admin: 11/01/22 00:58 Dose: 4 mg Oxycodone HCl (Oxycodone Hcl Immed Release 5 Mg Tablet) 5 mg PO Q6H PRN PRN Reason: Pain, Severe (Pain Scale 7-10) Last Admin: 11/01/22 07:10 Dose: 5 mg Pharmacy Consult (Consult Rx Perform Med Rec) 1 each MISCELLANE ONCE PRN PRN Reason: Consult order Sodium Chloride (0.9 % Sodium Chloride Flush 3 Ml Syringe) 3 ml IVFLUSH QSHIFT [facility] Last Admin: 11/01/22 07:10 Dose: Not Given Zolpidem Tartrate (Zolpidem Tartrate 5 Mg Tablet) 5 mg PO BEDTIME PRN PRN Reason: Insomnia Home Medications Medication Instructions Recorded Confirmed Last Taken Type cholecalciferol (vitamin D3) 50 50 mcg PO DAILY 08/19/20 06/30/21 Unknown History mcg (2,000 unit) capsule Physical Exam Vital Signs: Vital Signs: Last Vital Signs Temp 97.8 F 11/01/22 07:00 Pulse 57 11/01/22 07:00 Resp 14 11/01/22 07:00 BP 97/61 11/01/22 07:00 Pulse Ox 99 11/01/22 07:00 O2 Del Method 11/01/22 07:00 BMI result Body Mass Index 25.0 Const: General: cooperative and no acute distress Nutritional Appearance: well nourished Orientation/consciousness: patient oriented x3 Limitations: no limitations HEENT: Head: Yes normocephalic and Yes atraumatic Ears: hearing grossly normal bilaterally Resp: Effort & Inspection: normal respiratory effort, no audible wheezes, no cough and no respiratory distress Cardio: Jugular venous distension: no JVD GI: Inspection: Yes normal to inspection Palpation (GI): Soft to palpation, Tenderness to palpation present (GI) in the RLQ, at McBurney's point and Rovsing's sign positive; Renner's sign negative and No hepatosplenomegaly present Percussion: Yes normal to percussion Auscultation: normal bowel sounds Rectal Exam - Female: deferred Skin: Other: Warm, dry, no rash Neuro: General: patient oriented x3 Extrem: General: Yes no clubbing, cyanosis or edema Results Results Labs: Short CBC 10/31/22 11/01/22 Range/Units 18:12 06:02 WBC 14.9 H 9.8 (4.8-10.8) X10*3/uL Hgb 14.9 12.5 (12.0-16.0) g/dl Hct 44.0 37.6 (37.0-47.0) % Plt Count 324 292 (160-400) X10*3/uL BMP 10/31/22 18:12 Sodium 139 Potassium 4.1 Chloride 105 Carbon Dioxide 25 BUN 16 Creatinine 0.72 Calcium 8.9 Liver Function 10/31/22 Range/Units 18:12 Total Bilirubin 1.0 (0.0-1.0) mg/dL AST 26 (5-31) U/L ALT 19 (0-31) U/L Alkaline Phosphatase 47 (39-117) U/L Albumin 4.3 (3.5-5.0) g/dL Urine 11/01/22 Range/Units 05:58 Urine Color Yellow Urine Appearance Clear Urine pH 5.5 (5.0-9.0) Ur Specific [place] >= 1.030 H (1.005-1.025) Urine Protein 30 (1+) H (Neg-Trace) mg/dL Urine Glucose (UA) Negative (Negative) mg/dL Assessment and Plan (1) Acute appendicitis: Status: Acute Plan 37-year-old female patient presenting with complaints of abdominal pain mainly in the right lower quadrant associated with nausea, vomiting, and diarrhea. Workup revealed an elevated WBC as well as inflammation of the appendix suggestive of early appendicitis. This morning she continues to have pain in the right lower quadrant and on examination is tender in the right lower quadrant over McBurney's point. Findings are suggestive of acute appendicitis. We discussed continued non operative management with IV antibiotics verses operative management with laparoscopic or possible open appendectomy. After discussion of the procedure, risks, and alternatives, she consents to a laparoscopic or possible open appendectomy. She is been added onto the operative schedule for today. Time Spent With Patient Time: Total time managing care of this patient today ____ minutes. Quality Stroke Does the patient have a stroke diagnosis?: No VTE Prior VTE?: No VTE Risk Level:: Surgical - moderate VTE Device Contraindication: N/A - Device Ordered VTE Drug Contraindication: Treatment Not Indicated Procedures Date of Service Date of Service: 11/01/22
--- NOTE | 2022-11-01 08:08 | PHA.MEDREC ---
Pharmacy Consult ? Medication Reconciliation Pharmacy has completed the medication reconciliation.
[2022-11-01] MEDS: metroNIDAZOLE/NS 500 MG/100 ML PIGGYBACK 100 MG IV (08:45)
--- NOTE | 2022-11-01 10:04 | PC.NURSE ---
assumed care of patient, pt resting comfortably in bed, VSs, awaiting gen surg
--- NOTE | 2022-11-01 10:43 | PC.NURSE ---
report given to OR for 11:30 appendectomy
--- NOTE | 2022-11-01 11:47 | PC.NURSE ---
pt to OR
--- NOTE | 2022-11-01 12:40 | HO.ANESPROP2 ---
HPI - Anesthesia Eval Consult details Narrative: 37 yr old female s/p gastric bandingfor lap appy today. received abiotics in ER PMFSH Active Problems Active Problems: All Active Problems (Updated 10/31/22 @ 23:13 by VAIBHAV Levine) Acute appendicitis (Acute) Hypothyroidism (Acute) Vitamin D deficiency (Acute) Past Medical History Medical History Hypothyroidism Vitamin D deficiency Family History Family History Father Diabetes Hypothyroidism Hypertension Mother Hypertension Family history of problems with anesthesia: No Surgical History Surgical History Hx of bariatric surgery Hx of cholecystectomy Hx of tubal ligation History of Problems with Anesthesia: No Social History Social History Alcohol intake: never Patient Tobacco Use Status: Current everyday Tobacco user Meds Allergies Allergy/AdvReac Type Severity Reaction Status Date / Time erythromycin base Allergy Unknown UNKNOWN Verified 06/30/21 13:57 [ERYTHROMYCIN BASE] Penicillins [PCN] Allergy Unknown UNKNOWN Verified 06/30/21 13:57 Azithromycin Allergy Unknown shortness Uncoded 06/30/21 13:57 of breath penicillin Allergy Unknown shortness Uncoded 06/30/21 13:57 of breath Active Medications: Current Medications Hydromorphone HCl (Hydromorphone Hcl 0.5 Mg/0.5 Ml Syringe) 0.5 mg IVPUSH Q3H PRN; Protocol PRN Reason: Pain, Severe (Pain Scale 7-10) Acetaminophen (Ofirmev) 1,000 mg in 100 mls @ 400 mls/hr IV Q6H [facility] Stop: 11/01/22 17:44 Last Infusion: 11/01/22 06:11 Dose: Infused Dextrose/Lactated Ringer's (D5lr) 1,000 mls @ 125 mls/hr IVCONT .Q8H [facility] Last Infusion: 11/01/22 10:04 Dose: Infused Levofloxacin (Levaquin) 500 mg in 100 mls @ 100 mls/hr IV Q24H [facility] Last Infusion: 11/01/22 01:17 Dose: Infused Metronidazole (Flagyl) 500 mg in 100 mls @ 100 mls/hr IV Q8H [facility] Last Infusion: 11/01/22 10:03 Dose: Infused Levothyroxine Sodium (Levothyroxine Sodium 112 Mcg Tablet) 112 mcg PO DAILY [facility] Last Admin: 11/01/22 10:04 Dose: Not Given Ondansetron HCl (Ondansetron Hcl 4 Mg/2 Ml Vial) 4 mg IVPUSH Q6H PRN PRN Reason: Nausea Last Admin: 11/01/22 00:58 Dose: 4 mg Oxycodone HCl (Oxycodone Hcl Immed Release 5 Mg Tablet) 5 mg PO Q6H PRN PRN Reason: Pain, Severe (Pain Scale 7-10) Last Admin: 11/01/22 07:10 Dose: 5 mg Pharmacy Consult (Consult Rx Perform Med Rec) 1 each MISCELLANE ONCE PRN PRN Reason: Consult order Sodium Chloride (0.9 % Sodium Chloride Flush 3 Ml Syringe) 3 ml IVFLUSH QSHIFT [facility] Last Admin: 11/01/22 07:10 Dose: Not Given Zolpidem Tartrate (Zolpidem Tartrate 5 Mg Tablet) 5 mg PO BEDTIME PRN PRN Reason: Insomnia Home Medications Medication Instructions Recorded Confirmed Last Taken Type levothyroxine 112 mcg tablet 1 tab PO DAILY 11/01/22 11/01/22 Unknown History Exam Exam Date and Time: November 01, 2022 1240 Height,Weight and Vital Signs: Height 5 ft 5 in Weight 68.039 kg Last Vital Signs Temp 97.8 F 11/01/22 11:59 Pulse 64 11/01/22 11:59 Resp 15 11/01/22 11:59 BP 97/64 11/01/22 11:59 Pulse Ox 99 11/01/22 11:59 O2 Del Method 11/01/22 11:59 Pertinent Lab Results Pertinent Lab Results: Laboratory Tests 10/31/22 10/31/22 10/31/22 18:12 18:12 18:12 WBC 14.9 H RBC 4.81 Hgb 14.9 Hct 44.0 MCV 91.5 MCH 31.0 MCHC 33.9 RDW 12.3 Plt Count 324 MPV 9.3 L Immature Gran % (Auto) 0.4 Neut % (Auto) 90.2 H Lymph % (Auto) 5.8 L [place] % (Auto) 3.1 Eos % (Auto) 0.2 Baso % (Auto) 0.3 Lymph # (Auto) 0.9 L [place] # (Auto) 0.5 Eos # (Auto) 0.0 Baso # (Auto) 0.0 Abs Immat Gran (auto) 0.06 H Absolute Neuts (auto) 13.5 H Absolute Nucleated RBC 0.000 Nucleated RBC % (auto) 0.0 PT INR APTT Sodium 139 Potassium 4.1 Chloride 105 Carbon Dioxide 25 Anion Gap 13 BUN 16 Creatinine 0.72 Estim Creat Clear Calc 98.1 Estimated GFR > 60 POC Glucose Random Glucose 119 H Lactic Acid Calcium 8.9 Total Bilirubin 1.0 AST 26 ALT 19 Alkaline Phosphatase 47 Total Protein 7.1 Albumin 4.3 Lipase 23 Beta HCG, Quant Urine Color Urine Appearance Urine pH Ur Specific [place] Urine Protein Urine Glucose (UA) Urine Ketones Urine Blood Urine Nitrite Ur Leukocyte Esterase Urine RBC Urine WBC Ur Squamous Epith Cells Urine Bacteria Hyaline Casts Influenza Type A (PCR) NEGATIVE Influenza Type B (PCR) NEGATIVE RSV RNA Qual (PCR) NEGATIVE SARS-CoV-2 RNA (RT-PCR) NEGATIVE 10/31/22 10/31/22 10/31/22 18:12 18:12 23:35 WBC RBC Hgb Hct MCV MCH MCHC RDW Plt Count MPV Immature Gran % (Auto) Neut % (Auto) Lymph % (Auto) [place] % (Auto) Eos % (Auto) Baso % (Auto) Lymph # (Auto) [place] # (Auto) Eos # (Auto) Baso # (Auto) Abs Immat Gran (auto) Absolute Neuts (auto) Absolute Nucleated RBC Nucleated RBC % (auto) PT 13.0 INR 1.1 APTT 31.0 Sodium Potassium Chloride Carbon Dioxide Anion Gap BUN Creatinine Estim Creat Clear Calc Estimated GFR POC Glucose Random Glucose Lactic Acid 0.9 Calcium Total Bilirubin AST ALT Alkaline Phosphatase Total Protein Albumin Lipase Beta HCG, Quant < 2 Urine Color Urine Appearance Urine pH Ur Specific [place] Urine Protein Urine Glucose (UA) Urine Ketones Urine Blood Urine Nitrite Ur Leukocyte Esterase Urine RBC Urine WBC Ur Squamous Epith Cells Urine Bacteria Hyaline Casts Influenza Type A (PCR) Influenza Type B (PCR) RSV RNA Qual (PCR) SARS-CoV-2 RNA (RT-PCR) 11/01/22 11/01/22 11/01/22 05:58 06:02 06:40 WBC 9.8 RBC 4.01 L Hgb 12.5 Hct 37.6 MCV 93.8 MCH 31.2 MCHC 33.2 RDW 12.3 Plt Count 292 MPV 9.3 L Immature Gran % (Auto) 0.3 Neut % (Auto) 78.4 H Lymph % (Auto) 15.2 L [place] % (Auto) 5.1 Eos % (Auto) 0.6 Baso % (Auto) 0.4 Lymph # (Auto) 1.5 [place] # (Auto) 0.5 Eos # (Auto) 0.1 Baso # (Auto) 0.0 Abs Immat Gran (auto) 0.03 Absolute Neuts (auto) 7.7 Absolute Nucleated RBC 0.000 Nucleated RBC % (auto) 0.0 PT INR APTT Sodium Potassium Chloride Carbon Dioxide Anion Gap BUN Creatinine Estim Creat Clear Calc Estimated GFR POC Glucose 89 Random Glucose Lactic Acid Calcium Total Bilirubin AST ALT Alkaline Phosphatase Total Protein Albumin Lipase Beta HCG, Quant Urine Color Yellow Urine Appearance Clear Urine pH 5.5 Ur Specific [place] >= 1.030 H Urine Protein 30 (1+) H Urine Glucose (UA) Negative Urine Ketones 15 Urine Blood Negative Urine Nitrite Negative Ur Leukocyte Esterase Negative Urine RBC 0-2 Urine WBC 0-5 Ur Squamous Epith Cells 0-2 Urine Bacteria None Seen Hyaline Casts 0-2 Influenza Type A (PCR) Influenza Type B (PCR) RSV RNA Qual (PCR) SARS-CoV-2 RNA (RT-PCR) Airway Mallampati Class: II TM Dist: >3cm Neck ROM: Full Heart: rrr Lungs: cta Assessment and Plan Assessment Anesthesia Assessment: Anesthesia Plan Discussed and Chart Reviewed Final Anesthetic Review Family History of Problems with Anesthesia: No History of Problems with Anesthesia: No NPO: Yes ASA Class: II Final Preanesthetic Review: No Changes in Pt Med Stat, Meds/Allgs Chart Reviewed and Consent Obtained/Reviewed Patient Risk: Low Procedure Risk: Low Anesthetic Plan Anesthetic Plan: GA Disposition: Standard PACU
--- NOTE | 2022-11-01 13:27 | W.PM.OPN ---
Operative Note Operative Note Date of Service: 11/01/22 Narrative: Preoperative diagnosis: Acute appendicitis Postoperative diagnosis: Same Procedure: Laparoscopic appendectomy Surgeon: All Ernandez MD [employer] Internship:Sharlene Briceno PA-C Anesthesia: General endotracheal Indications for procedure: 37-year-old female patient presenting with complaints of right lower quadrant abdominal pain 24 hours duration found to have changes on CT consistent with acute appendicitis and elevated WBC. Patient presents now for laparoscopic appendectomy. Operative findings: Normal appearing appendix without obvious infection Specimen:appendix Estimated blood loss:< 1 ml Complications: none Procedure details: Patient was brought to the OR and placed in a supine position. After administering general anesthesia the patient's abdomen was prepped with ChloraPrep and draped in a sterile fashion. A surgical time-out was called and consent confirmed. Patient received preoperative antibiotics and Venodyne boots were in place. Local anesthesia consisting of 0.75% Sensorcaine with epinephrine was infiltrated in periumbilical region. A 5 mm incision was made below the umbilicus and carried down through subcutaneous tissue. A Veress needle was then inserted while elevating abdominal cavity with towel clips. After a positive drop test the abdomen was insufflated to a pressure of 15 mm of mercury. The Veress needle was removed and a 5 mm trocar inserted. The camera was then inserted in the abdomen explored. A 2nd 5 mm trocars placed in the lower midline. A 12 mm trocar was then placed in the left lower quadrant. The patient was then placed in a Trendelenburg position and rotated to the left. The appendix was identified in the right lower quadrant and brought up using blunt dissecting clamps. The mesentery of the appendix was then divided using the LigaSure. The appendiceal artery was cauterized and divided using the LigaSure. Dissection was continued down to the base of the cecum. An Endo-YUE stapler with a purple reload was then used to divide the appendix at the base with the cecum. The appendix was then placed in Endo-Catch bag and brought out through the left lower quadrant incision. The abdomen was then irrigated with saline solution and suctioned dry. Wounds were checked for hemostasis. CO2 was then evacuated from the abdominal cavity and all trocars removed. Skin was closed at all incisions using a subcuticular 4-0 Polysorb suture. Steri-Strips 2 x 2 gauze and Tegaderm were then applied. The patient tolerated the procedure well. Sponge, instrument, needle counts reported as correct. The patient was transferred to PACU in stable condition.
[2022-11-01] MEDS: fentaNYL citrate/PF 100 MCG/2 ML VIAL 25 MCG IVPUSH (13:59)
[2022-11-01] MEDS: HYDROmorphone HCl 0.5 MG/0.5 ML SYRINGE IVPUSH (22:26)
[2022-11-02] MEDS: oxyCODONE HCl Immed Release 5 MG TABLET PO ×2 (00:21→07:24)
[2022-11-02] MEDS: 0.9 % Sodium Chloride Flush 3 ML SYRINGE IVFLUSH (00:23)
[2022-11-02 00:41] VITALS: BP 109/68; PULSE 54; RESP 20; TEMP 36.3; O2SAT 98
[2022-11-02 03:11] VITALS: BP 100/68; PULSE 54; RESP 20; TEMP 36.4; O2SAT 98
[2022-11-02] MEDS: Dextrose 5 % and Lactated Ring 1,000 ML 125 ML IVCONT (07:24)
[2022-11-02] MEDS: Levothyroxine Sodium 112 MCG TABLET PO (07:25)
[2022-11-02 08:00] VITALS: BP 115/64; PULSE 62; RESP 19; TEMP 37.2; O2SAT 99
--- NOTE | 2022-11-02 09:03 | PM.PNGS ---
Subjective Subjective Date of Service: 11/02/22 Interval history: Feels improved this am. Mild incisional pain. OOB and ambulating. Tolerating diet. passing flatus Physical Exam Vital Signs: Vital Signs: Last Vital Signs Temp 99.0 F 11/02/22 08:00 Pulse 62 11/02/22 08:00 Resp 19 11/02/22 08:00 BP 115/64 11/02/22 08:00 Pulse Ox 99 11/02/22 08:00 O2 Del Method 11/02/22 08:00 BMI result Body Mass Index 25.0 Const: General: comfortable, no acute distress and alert Orientation/consciousness: patient oriented x3 Resp: Effort & Inspection: normal respiratory effort GI: Inspection: No distended and Yes incision (dressings c/d/i) Palpation (GI): Soft to palpation, Tenderness to palpation present (GI) (incisional, mild), no guarding and not rigid Skin: General skin exam: no rashes or lesions noted Neuro: General: patient oriented x3 and moves all extremities Objective Data Active Medications Hydromorphone HCl (Hydromorphone Hcl 0.5 Mg/0.5 Ml Syringe) 0.5 mg IVPUSH Q3H PRN; Protocol PRN Reason: Pain, Severe (Pain Scale 7-10) Last Admin: 11/01/22 22:26 Dose: 0.5 mg Documented By: COTEMA Dextrose/Lactated Ringer's (D5lr) 1,000 mls @ 125 mls/hr IVCONT .Q8H [facility] Last Admin: 11/02/22 07:24 Dose: 125 mls/hr Documented By: PANKAJ Levothyroxine Sodium (Levothyroxine Sodium 112 Mcg Tablet) 112 mcg PO DAILY [facility] Last Admin: 11/02/22 07:25 Dose: 112 mcg Documented By: PANKAJ Ondansetron HCl (Ondansetron Hcl 4 Mg/2 Ml Vial) 4 mg IVPUSH Q6H PRN PRN Reason: Nausea Last Admin: 11/01/22 00:58 Dose: 4 mg Documented By: JEANNINE Oxycodone HCl (Oxycodone Hcl Immed Release 5 Mg Tablet) 5 mg PO Q6H PRN PRN Reason: Pain, Severe (Pain Scale 7-10) Last Admin: 11/02/22 07:24 Dose: 5 mg Documented By: PANKAJ Pharmacy Consult (Consult Rx Perform Med Rec) 1 each MISCELLANE ONCE PRN PRN Reason: Consult order Sodium Chloride (0.9 % Sodium Chloride Flush 3 Ml Syringe) 3 ml IVFLUSH QSHIFT KE Last Admin: 11/02/22 07:25 Dose: Not Given Documented By: PANKAJ Non-Admin Reason: IV Running Zolpidem Tartrate (Zolpidem Tartrate 5 Mg Tablet) 5 mg PO BEDTIME PRN PRN Reason: Insomnia Labs 11/01/22 06:02 10/31/22 18:12 Microbiology Microbiology Results: Microbiology 10/31/22 23:35 Blood Culture - Preliminary Blood - Venous No growth after 24 hours. 10/31/22 23:35 Blood Culture - Preliminary Blood - Venous No growth after 24 hours. Procedures Date of Service Date of Service: 11/02/22 Progress Note: A&P Assessment and plan (1) Acute appendicitis: Status: Acute (2) S/P laparoscopic appendectomy: Status: Acute Plan 37 year old female admitted for acute appendicitis now POD #1 s/p lap appy. She is doing well post op and tolerating a solid diet with good pain control. VSS. Abd exam benign with appropriate post op tenderness, clean dressings. She is stable and ready for discharge to home today. She is comfortable with plan. Educated no heavy lifting, f/u in office in 1 week. Time Spent With Patient Time: Total time managing care of this patient today ____ minutes. Quality Stroke Does the patient have a stroke diagnosis?: No VTE Prior VTE?: No VTE Risk Level:: Surgical - moderate VTE Device Contraindication: N/A - Device Ordered VTE Drug Contraindication: Treatment Not Indicated
--- NOTE | 2022-11-02 09:19 | MHC.CM.PN ---
CM met with Patient at bedside and addressed ABEL with her, providing her with the original and placing a copy on the chart. Patient has been medically cleared for dc to home today, self care.
--- NOTE | 2022-11-02 14:45 | HO.POSTANES ---
Post Anesthesia Evaluation Post Anesthesia Evaluation Vital Signs: Vital Signs Temp Pulse Resp BP Pulse Ox O2 Del Method 11/02/22 08:00 99.0 F 62 19 115/64 99 Room Air 11/02/22 03:11 97.5 F 54 20 100/68 98 Room Air Anesthesia: General Endotracheal-GETA Mental Status: Awake Pain Control: Satisfactory Nausea/Vomiting: None Hydration: Adequate Anesthesia-Related Issues: No Anes. Related Issues
--- NOTE | 2022-11-04 09:34 | P.DS_ITS ---
DS: Providers Provider Date of Service: 11/02/22 Date of admission: 10/31/22 23:17 Date of discharge: 11/02/22 Primary care physician: Rachele Bailey MD Attending physician on admission: All Ernandez Attending physician on discharge: All Ernandez DS: Diagnosis Discharge Diagnosis (1) Acute appendicitis: Status: Acute (2) S/P laparoscopic appendectomy: Status: Acute DS: Summary Hospital Course Hospital Course: HPI ON ADMISSION: Lavinia Schmidt is a 37 year old female presenting with complaints of abdominal pain begining in the epigastrium, then radiating to the lower right abdomen, associated with nausea, vomiting, and diarrhea. She denies a previous history of similar symptoms. The pain began last night and worsened in severity until she presented to the emergency department. At the pain is worst she reports 8/10 in severity. Currently she is at 6/10. She continues to report nausea and anorexia. She denies fever or chills. Her past history is significant for a gastric bypass performed by Dr. Naranjo at [facility]. She denies any complications following this procedure. Workup in the emergency department revealed a WBC of 14.[address] suspicious for early appendicitis. HOSPITAL COURSE: She was admitted to the surgical service for further management of acute appendicitis. She was kept NPO, on IVF and started on IV antibiotics. The following morning, her white blood cell count normalized but she continued to have pain in the right lower quadrant. It was therefore recommended to proceed with laparoscopic appendectomy possible open. She was added onto the OR schedule for that morning. On 11/01/22, a laparoscopic appendectomy was performed by Dr. Ernandez without complication. The patient tolerated the procedure well. She had an uncomplicated recovery course. On POD #1, she felt well. She was tolerating a solid diet. She was comfortable on PO analgesics. She was OOB and ambulating. Her abdomen was benign with appropriate post op tenderness and clean/intact dressings. She felt ready for discharge to home. She was discharged on 11/02/22 in stable condition. She is to follow up in the office in 1 week. Status at Discharge Functional status at discharge: independent ambulation Overall status at discharge: patient is progressing back to baseline Time Spent with Patient Time attestation: Total time managing care of this patient today ____ minutes. Discharge coordination time: Less than 30 minutes Quality: Safe Use of Opioids Does Pt have an Active Cancer Diagnosis on the Problem List?: No Quality: Stroke Does the patient have a stroke diagnosis?: No Physical Exam Vital Signs: Vital Signs: Last Vital Signs Temp 99.0 F 11/02/22 08:00 Pulse 62 11/02/22 08:00 Resp 19 11/02/22 08:00 BP 115/64 11/02/22 08:00 Pulse Ox 99 11/02/22 08:00 O2 Del Method 11/02/22 08:00 BMI result Body Mass Index 25.0 Const: General: comfortable, no acute distress and alert Orientation/consciousness: patient oriented x3 Resp: Effort & Inspection: normal respiratory effort GI: Inspection: No distended and Yes incision (dressings c/d/i) Palpation (GI): Soft to palpation, Tenderness to palpation present (GI) (mild incisional tenderness), no guarding and not rigid Percussion: Yes normal to percussion Skin: General skin exam: no rashes or lesions noted Neuro: General: patient oriented x3 and moves all extremities DS: Data Data Completed and Pending Completed studies during hospitalization [Text1]: 11/01/22 13:38 Surgical [PTH] Routine Appendix, appendectomy: Focal mild acute appendicitis. Labs on day of discharge: Preliminary micro results at discharge 10/31/22 23:35 Blood Culture - Preliminary Blood - Venous No growth after 48 hours. 10/31/22 23:35 Blood Culture - Preliminary Blood - Venous No growth after 48 hours. Discharge Plan Discharge Patient Disposition: Home, Self-Care Discharge Diagnosis: s/p laparoscopic appendectomy Referrals: Rachele Bailey MD [Primary Care Provider] - 1 Week All Ernandez MD [Physician] - 1 Week Discharge Medications: New oxycodone 5 mg tablet 5 mg PO Q4H PRN (Reason: pain (scale score 7-10)) Qty: 20 0RF Rx Instructions: Partial Fill upon patient request. docusate sodium [Colace] 100 mg capsule 100 mg PO BID PRN (Reason: constipation) Qty: 30 0RF Continued levothyroxine 112 mcg tablet 1 tab PO DAILY Discharge Orders: Discharge Order (Routine); Ordered 11/02/22 Ordered By: Sharlene Janak Diet: Advance to usual diet Activity on Discharge: No heavy lifting Stand Alone Forms: Patient Portal Discharge page, Work/School Release Print Language: [place] Activity Restrictions/Additional Instructions: If the incision area is tender, you may apply an ice pack for short intervals (No more than 20 minutes on, followed by at least 20 minutes off). Do not apply heat. Do not use creams, lotions, or topical antibiotics unless instructed to do so by your surgeon. These can cause infection or allergic reaction. Ok to shower. Remove clear dressings 3 days following your procedure. You have steri strips (small white cloth strips) covering your incision- these will fall off ~1 week. No heavy lifting (>10lbs) or strenuous activity! Follow up in office with Dr. Ernandez in 1 week. ([phone]) Call Your Doctor If: -Your temperature exceeds 101.5? F -You experience excessive pain or swelling -You have an unexpected reaction to medication -You have excessive bleeding -You experience continued vomiting/nausea -Your incision begins to separate -Your incision shows signs of infection such as increased redness, swelling, excessive pain, drainage (light blood or clear fluid is normal) or heat Care Plan Goals: Return to baseline health and gradual return to activity following recovery period. Health Concerns: acute appendicitis Plan of Treatment: s/p laparoscopic appendectomy F/u in office in 1 week Assessment: Doing well post op Discharge Date/Time: 11/02/22 10:50
== END 2022-11-02 10:50 | disposition home or self-care (01) ==
LOC: HO.ED 23:50 → HO.EDOVER 23:59 → HO.S3 11-01 15:09
PROVIDERS: Physician Assistant; Admitting Provider Surgery; Emergency Provider Emergency Medicine; PCP Pediatrics; Visit Provider Surgery
PROC: 0DTJ4ZZ Resection of Appendix, Percutaneous Endoscopic Approach (ICD-10-PCS; CPT 44970; principal; 2022-11-01 12:30)
DX: K35.80 Unspecified acute appendicitis (principal); Z20.822 Contact with and (suspected) exposure to COVID-19; Z20.828 Contact with and (suspected) exposure to other viral communicable diseases; E03.9 Hypothyroidism, unspecified; E55.9 Vitamin D deficiency, unspecified; Z98.84 Bariatric surgery status; Z90.49 Acquired absence of other specified parts of digestive tract; Z98.51 Tubal ligation status; Z79.899 Other long term (current) drug therapy
CPT/HCPCS: 44970; 0241U; 36415; 74177; 80053; 81001; 82947; 83605; 83690; 84702; 85025; 85610; 85730; 87040; 88304; 96361; 96365; 96374; 96375; 99221; 99284; 99285; J0131; J0696; J1100; J1170; J1200; J1885; J1956; J2270; J2405; J3010; Q9967

== ENCOUNTER → 2022-11-11 13:11 | Outpatient (BNVA) | payer MEDICAID, SELFPAY | PROVIDERS: PCP Pediatrics; Visit Provider Surgery | DX: Z13.89 Encounter for screening for other disorder (principal) ==

== ENCOUNTER 2023-04-27 15:26 | Outpatient (REF) | payer MEDICAID, SELFPAY ==
--- NOTE | ~2023-04-27 | US_ITS ---
EXAMINATION: US PELVIS TRANSABDOMINAL AND TRANSVAGINAL CLINICAL INFORMATION: Pelvic pain COMPARISON: CT of 10/31/2022 TECHNIQUE: Ultrasound of the pelvis is performed using both transabdominal and transvaginal transducers along with Doppler. Transvaginal imaging is performed due to inadequate visualization transabdominally. FINDINGS: Uterus: The uterus is anteverted and measures 8.9 x 3.6 x 4.6 cm with an endometrial thickness of 5 mm. The myometrium is considerably and inhomogeneous. The double wall endometrial thickness is 5 mm. Adnexa: Both ovaries are visualized. There is normal color flow to the adnexa. There is no ovarian torsion. There is no pelvic ascites or fluid collection. Both ovaries demonstrate prominent small follicles in the periphery, suggestive of a string of pearls. Right ovary measures 3.4 x 2.1 x 2.0 cm, a volume of 7.4 cm. Numerous small peripheral follicles, all approximately the same size are noted in the right ovary. Left ovary measures 2.8 x 2.2 x 2.4 cm, a volume of 7.6 cm. Numerous small peripheral follicles, all approximately the same size are noted in the left ovary US/US pelvic and transvaginal IMPRESSION: 1. Inhomogeneous myometrium, a nonspecific finding which can be seen with adenomyosis or small fibroids. 2. Multiple small peripheral follicles in both ovaries, consistent with string of fabio sign indicative of polycystic ovary syndrome.
== END 2023-04-27 15:27 | disposition home or self-care (01) ==
LOC: HO.HMGCX 15:26
PROVIDERS: Visit Provider Student in an Organized Health Care Education/Training Program
DX: R10.2 Pelvic and perineal pain (principal)
CPT/HCPCS: 76830; 76856

== ENCOUNTER 2023-07-21 08:27 | Outpatient (REF) | payer MEDICAID, SELFPAY ==
[2023-07-21 14:52] LABS: MANUAL DIFF FLAG NO
[2023-07-21 15:00] LABS: Basophils Absolute Auto 0.1 X10*3/uL (0.0-0.2); Basophils Percent Auto 1.9 % (0-2); Eosinophils Absolute Auto 0.1 X10*3/uL (0.0-0.4); Eosinophils Percent Auto 1.7 % (0-4); Hematocrit 37.7 % (37.0-47.0); Hemoglobin 12.4 g/dl (12.0-16.0); Imm Gran Abs Auto 0.01 X10*3/uL (0.00-0.03); Imm Gran Pct Auto 0.2 % (0.0-0.4); Lymphocytes Absolute Auto 1.8 X10*3/uL (1.2-4.9); Lymphocytes Percent Auto 37.4 % (20-40); Mean Corpuscular HGB Conc 32.9 g/dl (31.0-35.0); Mean Corpuscular Hemoglobin 31.4 pg (27.0-33.0); Mean Corpuscular Volume 95.4 fL (80.0-98.0); Mean Platelet Volume 9.9 fL (9.4-12.3); Monocytes Absolute Auto 0.3 X10*3/uL (0.1-1.2); Monocytes Percent Auto 5.3 % (2-11); Neutrophils Absolute Auto 2.6 x10*3/uL (2.0-8.3); Neutrophils Percent Auto 53.5 % (45-73); Platelet Count 335 X10*3/uL (160-400); Red Blood Count 3.95 X10*6/uL (4.20-5.50); Red Cell Distribution Width 12.6 % (11.0-16.0); White Blood Count 4.8 X10*3/uL (4.8-10.8)
[2023-07-21 15:25] LABS: Alanine Aminotransferase 9 U/L (0-31); Albumin Level 4.2 g/dL (3.5-5.0); Alkaline Phosphatase 44 U/L (39-117); Anion Gap 12 (12-20); Aspartate Amino Transferase 18 U/L (5-31); Bilirubin Direct 0.2 mg/dL (0.0-0.5); Bilirubin Total 0.7 mg/dL (0.0-1.0); Blood Urea Nitrogen 16 mg/dL (9-16); Calcium 9.5 mg/dL (8.4-10.2); Carbon Dioxide 28 mmol/L (22-29); Chloride 103 mmol/L (96-108); Cholesterol 181 mg/dL (<200); Estimated Glomerular Filt Rate > 60; Glucose Fasting 71 mg/dL (60-99); HDL Cholesterol 51 mg/dL (>40); LDL Cholesterol Calculated 120 mg/dL (<100); Potassium 3.7 mmol/L (3.3-5.1); Sodium 139 mmol/L (135-145); Total Protein 7.3 g/dL (6.5-8.0); Triglycerides 54 mg/dL (<150)
[2023-07-21 15:40] LABS: Vitamin B12 173 pg/mL (200-900)
[2023-07-21 15:43] LABS: TSH reflex Free T4 0.13 uIU/mL (0.32-4.0); Vitamin D 25-OH Total 36.8 ng/mL (>30)
[2023-07-21 16:31] LABS: Free T4 (Free Thyroxine) 1.19 ng/dL (0.71-1.85)
[2023-07-22 03:59] LABS: HIV AB/AG Nonreactive (Nonreactive); HIV Num 1 0.04 S/CO (0.00-0.99); ~HepC Num1 0.05 S/CO (0.00-0.79); ~Hepatitis C Antibody Nonreactive (Nonreactive)
== END 2023-07-21 08:28 | disposition home or self-care (01) ==
LOC: HO.CHCLDS 08:27
PROVIDERS: Visit Provider Pediatrics
DX: E03.9 Hypothyroidism, unspecified (principal); Z98.84 Bariatric surgery status
CPT/HCPCS: 36415; 80048; 80061; 80076; 82306; 82607; 84439; 84443; 85025; 86803; 87389